=== PATIENT | male | born 1950 | race Caucasian/White ===

== ENCOUNTER 2021-05-23 21:02 | Inpatient (IN) | payer MEDICARE ==
[2021-05-23 21:41] LABS: Hemoglobin 13.7 g/dL (13.5-17.5); Mean Corpuscular Hemoglobin 30.6 pg (27.0-33.0); Mean Corpuscular Volume 92.8 fl (81.2-95.1); Mean Platelet Volume 11.2 fl (7.4-10.4); Platelet Count 325 10x3/uL (150-450); RBC Distribution Width 16.4 % (11.5-14.5); Red Blood Cell (RBC) Count 4.47 10x6/uL (4.32-5.72); White Blood Cell (WBC) Count 9.4 10x3/uL (3.5-10.5)
[2021-05-23 21:42] LABS: MDiff Complete? YES
[2021-05-23 21:51] LABS: ALT (SGPT) 67 U/L (8-55); AST (SGOT) 71 U/L (5-34); Albumin 2.9 g/dL (3.4-4.8); Alkaline Phosphatase 68 U/L (40-110); Anion Gap 15 mmol/L (10-20); BUN (Urea Nitrogen) 29 mg/dL (8.4-25.7); Bilirubin, Total 1.5 mg/dL (0.2-1.2); CRP (Inflammatory) 17.58 mg/dL (= or < 0.5); Calc. Creatinine Clearance 0 mL/min (70-130); Calcium 7.9 mg/dL (7.8-10.44); Carbon Dioxide 21 mmol/L (23-31); Chloride 112 mmol/L (98-107); Globulin 3.6 g/dL (2.4-3.5); Glucose 122 mg/dL (83-110); Lipase 26 U/L (8-78); Magnesium 2.6 mg/dL (1.6-2.6); Potassium 4.6 mmol/L (3.5-5.1); Protein, Total 6.5 g/dL (5.8-8.1); Sodium 143 mmol/L (136-145)
[2021-05-23 22:14] LABS: CKMB 2.9 ng/mL (0-6.6)
[2021-05-23 22:18] LABS: Bilirubin Neg (Negative); Blood, Urine 10 (Negative); Clarity Clear (Clear); Glucose, Urine (Dipstick) Normal (Negative); Ketone, Urine Negative (Negative); Leukocyte 25 (Negative); Nitrite Negative (Negative); Protein, Urine (Dipstick) 30 mg/dl (Neg-Trace)
[2021-05-23 22:23] LABS: SARS-CoV-2 NAA Rapid Test DETECTED (NotDetected)
[2021-05-23 22:27] LABS: Actual Bicarbonate (HCO3a) 21.3 mEq/L (22-28); Base Excess (BEa) -1.5 mEq/L (-2.0 to +3.0); CO2 Tension 30.6 mmHg (35.0-45.0); Calcium, Ionized (arterial) 1.14 mmol/L (1.12-1.30); Carboxyhemoglobin (COHb) 0.7 gm% (0.0-3.0); Hemoglobin (Hb) 13.6 g/dL (14.0-18.0); O2 Tension (PaO2), arterial 48.9 mmHg (> 70.0); Potassium - ABG Lab 4.1 mmol/L (3.70-5.30); Puncture Site RRA; pH, Arterial 7.46 (7.35-7.45)
[2021-05-23 22:37] LABS: Bacteria/HPF 3+ HPF (None Seen); Mucous/LPF 3+ LPF (<2+); RBC/HPF 0-3 HPF (0-3); Squamous Epithelial 0-3 HPF (0-3); WBC/HPF 0-3 HPF (0-3)
[2021-05-23] MEDS ORDERED: Aspirin 325 MG TAB ONE (23:10)
[2021-05-23] MEDS ORDERED: Dexamethasone 10 MG/ML VIAL ONE (23:10)
[2021-05-23 23:49] LABS: Band 3 % (5-11); Lymphocytes 12 % (21-51); Monocytes 2 % (0-10); Neutrophil 82 % (42-75); Reactive Lymphocytes 1 % (0-10)
[2021-05-23 23:53] LABS: Platelet Clumps SLIGHT; RBC Morphology Normal
[2021-05-23] MEDS ORDERED: Acetaminophen 325 MG TAB PO PRN (23:56)
[2021-05-23] MEDS ORDERED: HYDROcodone/Acetaminophen 5/325 mg Tablet PO PRN (23:56)
[2021-05-23] MEDS ORDERED: Calcium Carbonate 500 MG ChewTAB PO PRN (23:56)
[2021-05-23] MEDS ORDERED: Ondansetron PF 4 MG/2 ML Vial IVP PRN (23:56)
[2021-05-24] MEDS ORDERED: Ventolin HFA Inhaler 60 PUFF INHALER INH PRN (00:05)
[2021-05-24] MEDS ORDERED: Enoxaparin Sodium 100 MG/ML SYRINGE SC SCH (00:15)
[2021-05-24] MEDS ORDERED: Lactated Ringer's 500 ML IV SCH (00:15)
[2021-05-24] MEDS ORDERED: Sodium Chloride 0.9% 1,000 ML IV SCH ×2 (00:15→00:24)
[2021-05-24] MEDS ORDERED: Sodium Chloride 0.45% 1,000 ML IV SCH ×2 (00:30→05:27)
[2021-05-24 00:54] LABS: Lactic Acid 1.4 mmol/L (0.5-2.2)
[2021-05-24] MEDS ORDERED: Enoxaparin Sodium 100 MG/ML SYRINGE ONE (02:16)
[2021-05-24] MEDS ORDERED: metroNIDAZOLE 500 MG/100 ML BAG ONE (02:17)
[2021-05-24] MEDS ORDERED: Levofloxacin 500 mg/D5W 100 ml Premix Bag ONE (02:18)
[2021-05-24 05:16] LABS: ALT (SGPT) 56 U/L (8-55); AST (SGOT) 53 U/L (5-34); Albumin 2.4 g/dL (3.4-4.8); Alkaline Phosphatase 56 U/L (40-110); Anion Gap 12 mmol/L (10-20); BUN (Urea Nitrogen) 31 mg/dL (8.4-25.7); Bilirubin, Total 1.1 mg/dL (0.2-1.2); Calc. Creatinine Clearance 0 mL/min (70-130); Calcium 7.8 mg/dL (7.8-10.44); Carbon Dioxide 19 mmol/L (23-31); Chloride 118 mmol/L (98-107); Globulin 3.5 g/dL (2.4-3.5); Glucose 145 mg/dL (83-110); Potassium 4.4 mmol/L (3.5-5.1); Protein, Total 5.9 g/dL (5.8-8.1); Sodium 145 mmol/L (136-145)
[2021-05-24 07:44] LABS: MDiff Complete? YES
[2021-05-24 07:45] LABS: Hemoglobin 11.9 g/dL (13.5-17.5); Mean Corpuscular HGB CONC 32.9 g/dL (32.0-36.0); Mean Corpuscular Hemoglobin 30.4 pg (27.0-33.0); Mean Corpuscular Volume 92.3 fl (81.2-95.1); Mean Platelet Volume 10.5 fl (7.4-10.4); Platelet Count 244 10x3/uL (150-450); RBC Distribution Width 16.8 % (11.5-14.5); Red Blood Cell (RBC) Count 3.92 10x6/uL (4.32-5.72); White Blood Cell (WBC) Count 7.5 10x3/uL (3.5-10.5)
[2021-05-24 07:52] LABS: Band 4 % (5-11); Lymphocytes 5 % (21-51); Monocytes 1 % (0-10); Neutrophil 86 % (42-75); Nucleated RBC 1 % (0); Reactive Lymphocytes 4 % (0-10)
[2021-05-24 07:54] LABS: Platelet Morphology Comment Appears Adequate; RBC Morphology Normal
[2021-05-24 08:44] LABS: CKMB 2.4 ng/mL (0-6.6)
[2021-05-24] MEDS ORDERED: Dexamethasone 4 mg/ml Vial SLOW IVP SCH (09:00)
[2021-05-24] MEDS ORDERED: Enoxaparin Sodium 40 MG/0.4 ML SYRINGE SC SCH (09:00)
[2021-05-24] MEDS: metroNIDAZOLE 500 MG in Premix Bag 1 BAG IVPB SCH ×3 (10:28→21:43)
[2021-05-24] MEDS: Enoxaparin Sodium 100 MG/ML SYRINGE SC SCH ×2 (10:57→20:20)
[2021-05-24] MEDS: Ascorbic Acid 500 mg Chewable Tablet PO SCH (10:58)
[2021-05-24] MEDS: Zinc Gluconate 50 MG TAB PO SCH (10:58)
[2021-05-24] MEDS: Aspirin 81 mg Enteric Coated Tablet PO SCH (10:58)
[2021-05-24] MEDS: Cholecalciferol 1,000 UNITS (25 MCG) TAB PO SCH (10:58)
[2021-05-24 16:10] LABS: Legionella Urinary Ag Negative (Negative); Strep pneumo Urine Ag NEGATIVE (NEGATIVE)
[2021-05-24] MEDS: Rosuvastatin 20 MG TAB PO SCH (20:20)
[2021-05-24] MEDS: BARICITINIB 2 MG TAB PO SCH (20:20)
[2021-05-25 04:13] LABS: Hemoglobin 11.2 g/dL (13.5-17.5); MDiff Complete? YES; Manual Diff?? YES; Mean Corpuscular HGB CONC 32.2 g/dL (32.0-36.0); Mean Corpuscular Hemoglobin 29.9 pg (27.0-33.0); Mean Corpuscular Volume 92.8 fl (81.2-95.1); Mean Platelet Volume 11.4 fl (7.4-10.4); Platelet Count 275 10x3/uL (150-450); RBC Distribution Width 16.7 % (11.5-14.5); Red Blood Cell (RBC) Count 3.75 10x6/uL (4.32-5.72)
[2021-05-25 04:26] LABS: Band 21 % (5-11); Lymphocytes 12 % (21-51); Neutrophil 67 % (42-75); Nucleated RBC 1 % (0); Platelet Morphology Comment Appears Adequate
[2021-05-25 04:27] LABS: Anisocytosis SLIGHT = 6-15 cells (100X) (0-5/hpf); Polychromasia SLIGHT = 2-3 cells (100X) (0-2/hpf)
[2021-05-25] MEDS: metroNIDAZOLE 500 MG in Premix Bag 1 BAG IVPB SCH ×3 (05:51→22:06)
[2021-05-25] MEDS ORDERED: Sodium Chloride 0.9% 250 ML 250 ML IVPB SCH (06:30)
[2021-05-25 07:33] LABS: ALT (SGPT) 44 U/L (8-55); AST (SGOT) 45 U/L (5-34); Albumin 2.2 g/dL (3.4-4.8); Alkaline Phosphatase 58 U/L (40-110); Anion Gap 11 mmol/L (10-20); BUN (Urea Nitrogen) 31 mg/dL (8.4-25.7); Bilirubin, Total 0.8 mg/dL (0.2-1.2); Calc. Creatinine Clearance 124 mL/min (70-130); Calcium 7.5 mg/dL (7.8-10.44); Carbon Dioxide 19 mmol/L (23-31); Chloride 114 mmol/L (98-107); Globulin 3.2 g/dL (2.4-3.5); Glucose 123 mg/dL (83-110); Potassium 3.9 mmol/L (3.5-5.1); Protein, Total 5.4 g/dL (5.8-8.1); Sodium 140 mmol/L (136-145)
[2021-05-25] MEDS: Dexamethasone 4 mg/ml Vial SLOW IVP SCH ×2 (10:00→20:25)
[2021-05-25] MEDS: Cholecalciferol 1,000 UNITS (25 MCG) TAB PO SCH (10:01)
[2021-05-25] MEDS: Enoxaparin Sodium 100 MG/ML SYRINGE SC SCH ×2 (10:01→20:24)
[2021-05-25] MEDS: Aspirin 81 mg Enteric Coated Tablet PO SCH (10:01)
[2021-05-25] MEDS: Zinc Gluconate 50 MG TAB PO SCH (10:01)
[2021-05-25] MEDS: Ascorbic Acid 500 mg Chewable Tablet PO SCH (10:01)
[2021-05-25] MEDS: Mometasone 100 MCG/PUFF (1 INHALER) INH SCH (18:01)
[2021-05-25] MEDS ORDERED: Mometasone Furoate 120 PUFF 220 MCG INH SCH (18:30)
[2021-05-25] MEDS: BARICITINIB 2 MG TAB PO SCH (20:24)
[2021-05-25] MEDS: Rosuvastatin 20 MG TAB PO SCH (20:24)
[2021-05-26 04:44] LABS: ALT (SGPT) 45 U/L (8-55); AST (SGOT) 46 U/L (5-34); Albumin 2.1 g/dL (3.4-4.8); Alkaline Phosphatase 67 U/L (40-110); Anion Gap 10 mmol/L (10-20); BUN (Urea Nitrogen) 31 mg/dL (8.4-25.7); Bilirubin, Total 0.8 mg/dL (0.2-1.2); Calc. Creatinine Clearance 121 mL/min (70-130); Calcium 7.5 mg/dL (7.8-10.44); Carbon Dioxide 18 mmol/L (23-31); Chloride 115 mmol/L (98-107); Globulin 3.3 g/dL (2.4-3.5); Glucose 122 mg/dL (83-110); Potassium 3.9 mmol/L (3.5-5.1); Protein, Total 5.4 g/dL (5.8-8.1); Sodium 139 mmol/L (136-145)
[2021-05-26 05:10] LABS: #Monocytes 0.2 10x3/uL (0.0-1.1); #Neutrophils 6.1 10x3/uL (1.5-8.4); %Basophils 0.4 % (0.0-2.0); %Lymphocytes 13.4 % (18.0-47.0); %Monocytes 2.4 % (0.0-10.0); %Neutrophils 81.8 % (40.0-75.0); Hemoglobin 11.4 g/dL (13.5-17.5); Mean Corpuscular HGB CONC 33.5 g/dL (32.0-36.0); Mean Corpuscular Hemoglobin 30.5 pg (27.0-33.0); Mean Corpuscular Volume 90.9 fl (81.2-95.1); Mean Platelet Volume 11.3 fl (7.4-10.4); Platelet Count 308 10x3/uL (150-450); RBC Distribution Width 16.6 % (11.5-14.5); Red Blood Cell (RBC) Count 3.74 10x6/uL (4.32-5.72); White Blood Cell (WBC) Count 7.5 10x3/uL (3.5-10.5)
[2021-05-26] MEDS: metroNIDAZOLE 500 MG in Premix Bag 1 BAG IVPB SCH ×2 (06:05→13:18)
[2021-05-26] MEDS: Dexamethasone 4 mg/ml Vial SLOW IVP SCH ×2 (08:32→21:35)
[2021-05-26] MEDS: Ascorbic Acid 500 mg Chewable Tablet PO SCH (08:33)
[2021-05-26] MEDS: Cholecalciferol 1,000 UNITS (25 MCG) TAB PO SCH (08:33)
[2021-05-26] MEDS: Enoxaparin Sodium 100 MG/ML SYRINGE SC SCH ×2 (08:33→21:35)
[2021-05-26] MEDS: Zinc Gluconate 50 MG TAB PO SCH (08:33)
[2021-05-26] MEDS: Aspirin 81 mg Enteric Coated Tablet PO SCH (08:33)
[2021-05-26] MEDS: Mometasone 100 MCG/PUFF (1 INHALER) INH SCH ×3 (09:00→19:08)
[2021-05-26] MEDS: Loperamide HCl 1 MG/7.5 ML UDCUP PO PRN (09:01)
[2021-05-26] MEDS: BARICITINIB 2 MG TAB PO SCH (21:34)
[2021-05-26] MEDS: Rosuvastatin 20 MG TAB PO SCH (21:35)
[2021-05-26] MEDS ORDERED: Enoxaparin Sodium 100 MG/ML SYRINGE ONE (21:37)
[2021-05-26] MEDS: Nystatin Powder 15 GM BOT TOP SCH (21:39)
[2021-05-27 04:43] LABS: Anion Gap 11 mmol/L (10-20); BUN (Urea Nitrogen) 32 mg/dL (8.4-25.7); Calc. Creatinine Clearance 117 mL/min (70-130); Calcium 7.7 mg/dL (7.8-10.44); Carbon Dioxide 17 mmol/L (23-31); Chloride 115 mmol/L (98-107); Glucose 144 mg/dL (83-110); Potassium 4.4 mmol/L (3.5-5.1); Sodium 139 mmol/L (136-145)
[2021-05-27 05:03] LABS: #Monocytes 0.2 10x3/uL (0.0-1.1); #Neutrophils 8.1 10x3/uL (1.5-8.4); %Basophils 0.2 % (0.0-2.0); %Lymphocytes 9.3 % (18.0-47.0); %Monocytes 2.4 % (0.0-10.0); Hemoglobin 12.3 g/dL (13.5-17.5); Mean Corpuscular HGB CONC 33.2 g/dL (32.0-36.0); Mean Corpuscular Hemoglobin 30.3 pg (27.0-33.0); Mean Corpuscular Volume 91.4 fl (81.2-95.1); Mean Platelet Volume 11.4 fl (7.4-10.4); Platelet Count 331 10x3/uL (150-450); RBC Distribution Width 16.7 % (11.5-14.5); Red Blood Cell (RBC) Count 4.06 10x6/uL (4.32-5.72); White Blood Cell (WBC) Count 9.3 10x3/uL (3.5-10.5)
[2021-05-27] MEDS: Enoxaparin Sodium 100 MG/ML SYRINGE SC SCH ×2 (08:35→20:52)
[2021-05-27] MEDS: Saccharomyces boulardii 250 MG CAP PO SCH (08:35)
[2021-05-27] MEDS: Dexamethasone 4 mg/ml Vial SLOW IVP SCH ×2 (08:35→20:53)
[2021-05-27] MEDS: Ascorbic Acid 500 mg Chewable Tablet PO SCH (08:36)
[2021-05-27] MEDS: Zinc Gluconate 50 MG TAB PO SCH (08:36)
[2021-05-27] MEDS: Aspirin 81 mg Enteric Coated Tablet PO SCH (08:36)
[2021-05-27] MEDS: Cholecalciferol 1,000 UNITS (25 MCG) TAB PO SCH (08:36)
[2021-05-27] MEDS: Nystatin Powder 15 GM BOT TOP SCH ×2 (08:48→20:53)
[2021-05-27] MEDS: Mometasone 100 MCG/PUFF (1 INHALER) INH SCH ×2 (08:50→19:40)
[2021-05-27] MEDS: Rosuvastatin 20 MG TAB PO SCH (20:52)
[2021-05-27] MEDS: Sodium Bicarbonate Tab 325 MG TAB PO SCH (20:53)
[2021-05-27] MEDS: BARICITINIB 2 MG TAB PO SCH (20:53)
[2021-05-28] MEDS: Loperamide HCl 1 MG/7.5 ML UDCUP PO PRN ×4 (05:43→21:57)
[2021-05-28 07:20] LABS: Anion Gap 14 mmol/L (10-20); BUN (Urea Nitrogen) 33 mg/dL (8.4-25.7); Calc. Creatinine Clearance 119 mL/min (70-130); Calcium 7.8 mg/dL (7.8-10.44); Carbon Dioxide 17 mmol/L (23-31); Chloride 115 mmol/L (98-107); Glucose 104 mg/dL (83-110); Potassium 4.8 mmol/L (3.5-5.1); Sodium 141 mmol/L (136-145)
[2021-05-28] MEDS ORDERED: Enoxaparin Sodium 100 MG/ML SYRINGE ONE (07:29)
[2021-05-28] MEDS: Dexamethasone 4 mg/ml Vial SLOW IVP SCH ×2 (08:51→21:57)
[2021-05-28] MEDS: Ascorbic Acid 500 mg Chewable Tablet PO SCH (08:53)
[2021-05-28] MEDS: Aspirin 81 mg Enteric Coated Tablet PO SCH (08:53)
[2021-05-28] MEDS: Cholecalciferol 1,000 UNITS (25 MCG) TAB PO SCH (08:54)
[2021-05-28] MEDS: Nystatin Powder 15 GM BOT TOP SCH ×2 (08:55→21:55)
[2021-05-28] MEDS: Enoxaparin Sodium 100 MG/ML SYRINGE SC SCH ×2 (08:55→21:54)
[2021-05-28] MEDS: Sodium Bicarbonate Tab 325 MG TAB PO SCH ×2 (08:56→21:54)
[2021-05-28] MEDS: Saccharomyces boulardii 250 MG CAP PO SCH (08:56)
[2021-05-28] MEDS: Zinc Gluconate 50 MG TAB PO SCH (08:56)
[2021-05-28] MEDS: Mometasone 100 MCG/PUFF (1 INHALER) INH SCH ×2 (10:02→18:35)
[2021-05-28] MEDS: Guaifenesin DM 100-10/5 ML UDCUP PO PRN (10:04)
[2021-05-28] MEDS: Rosuvastatin 20 MG TAB PO SCH (21:55)
[2021-05-28] MEDS: BARICITINIB 2 MG TAB PO SCH (21:57)
[2021-05-29] MEDS: Loperamide HCl 1 MG/7.5 ML UDCUP PO PRN ×5 (04:00→20:10)
[2021-05-29 07:51] LABS: #Monocytes 0.3 10x3/uL (0.0-1.1); #Neutrophils 11.6 10x3/uL (1.5-8.4); %Basophils 0.2 % (0.0-2.0); %Lymphocytes 5.3 % (18.0-47.0); %Monocytes 2.3 % (0.0-10.0); %Neutrophils 90.1 % (40.0-75.0); Hemoglobin 12.6 g/dL (13.5-17.5); Mean Corpuscular Hemoglobin 30.7 pg (27.0-33.0); Mean Corpuscular Volume 90.3 fl (81.2-95.1); Mean Platelet Volume 11.6 fl (7.4-10.4); Platelet Count 345 10x3/uL (150-450); RBC Distribution Width 16.6 % (11.5-14.5); Red Blood Cell (RBC) Count 4.11 10x6/uL (4.32-5.72); White Blood Cell (WBC) Count 12.9 10x3/uL (3.5-10.5)
[2021-05-29 08:04] LABS: ALT (SGPT) 96 U/L (8-55); AST (SGOT) 64 U/L (5-34); Albumin 2.4 g/dL (3.4-4.8); Alkaline Phosphatase 83 U/L (40-110); Anion Gap 13 mmol/L (10-20); BUN (Urea Nitrogen) 29 mg/dL (8.4-25.7); Bilirubin, Total 0.7 mg/dL (0.2-1.2); Calc. Creatinine Clearance 122 mL/min (70-130); Calcium 7.8 mg/dL (7.8-10.44); Carbon Dioxide 17 mmol/L (23-31); Chloride 114 mmol/L (98-107); Globulin 3.3 g/dL (2.4-3.5); Glucose 112 mg/dL (83-110); Potassium 4.8 mmol/L (3.5-5.1); Protein, Total 5.7 g/dL (5.8-8.1); Sodium 139 mmol/L (136-145)
[2021-05-29] MEDS: Dexamethasone 4 mg/ml Vial SLOW IVP SCH (09:03)
[2021-05-29] MEDS: Aspirin 81 mg Enteric Coated Tablet PO SCH (09:03)
[2021-05-29] MEDS: Ascorbic Acid 500 mg Chewable Tablet PO SCH (09:04)
[2021-05-29] MEDS: Enoxaparin Sodium 100 MG/ML SYRINGE SC SCH ×2 (09:05→20:18)
[2021-05-29] MEDS: Zinc Gluconate 50 MG TAB PO SCH (09:05)
[2021-05-29] MEDS: Cholecalciferol 1,000 UNITS (25 MCG) TAB PO SCH (09:05)
[2021-05-29] MEDS: Nystatin Powder 15 GM BOT TOP SCH ×2 (09:06→20:19)
[2021-05-29] MEDS: Saccharomyces boulardii 250 MG CAP PO SCH (09:07)
[2021-05-29] MEDS: Sodium Bicarbonate Tab 325 MG TAB PO SCH ×2 (09:08→20:18)
[2021-05-29] MEDS: Mometasone 100 MCG/PUFF (1 INHALER) INH SCH ×2 (09:38→19:25)
[2021-05-29] MEDS: Guaifenesin DM 100-10/5 ML UDCUP PO PRN (20:10)
[2021-05-29] MEDS: BARICITINIB 2 MG TAB PO SCH (20:18)
[2021-05-29] MEDS: Rosuvastatin 20 MG TAB PO SCH (20:19)
[2021-05-29 21:34] LABS: Actual Bicarbonate (HCO3a) 19.4 mEq/L (22-28); Base Excess (BEa) -2.2 mEq/L (-2.0 to +3.0); CO2 Tension 25.5 mmHg (35.0-45.0); Calcium, Ionized (arterial) 1.18 mmol/L (1.12-1.30); Carboxyhemoglobin (COHb) 0.2 gm% (0.0-3.0); Hemoglobin (Hb) 13.4 g/dL (14.0-18.0); O2 Tension (PaO2), arterial 43.6 mmHg (> 70.0); Potassium - ABG Lab 4.4 mmol/L (3.70-5.30); Puncture Site LRA
[2021-05-29 21:38] LABS: ALV-art Gradient 387.975 mmHg (0-20)
[2021-05-29 22:20] LABS: Actual Bicarbonate (HCO3a) 20.1 mEq/L (22-28); Base Excess (BEa) -1.6 mEq/L (-2.0 to +3.0); CO2 Tension 26.3 mmHg (35.0-45.0); Calcium, Ionized (arterial) 1.17 mmol/L (1.12-1.30); Carboxyhemoglobin (COHb) 0.2 gm% (0.0-3.0); O2 Tension (PaO2), arterial 59.2 mmHg (> 70.0); Potassium - ABG Lab 4.5 mmol/L (3.70-5.30); Puncture Site LRA
[2021-05-29 22:25] LABS: ALV-art Gradient 585.275 mmHg (0-20)
[2021-05-29] MEDS ORDERED: Furosemide 20 MG/2 ML VIAL SLOW IVP SCH (22:45)
[2021-05-30 04:02] LABS: #Basophils 0.1 10x3/uL (0.0-0.2); #Monocytes 0.6 10x3/uL (0.0-1.1); #Neutrophils 13.4 10x3/uL (1.5-8.4); %Basophils 0.4 % (0.0-2.0); %Lymphocytes 6.7 % (18.0-47.0); %Monocytes 3.8 % (0.0-10.0); %Neutrophils 86.7 % (40.0-75.0); Hemoglobin 12.7 g/dL (13.5-17.5); Mean Corpuscular HGB CONC 34.8 g/dL (32.0-36.0); Mean Corpuscular Hemoglobin 31.1 pg (27.0-33.0); Mean Corpuscular Volume 89.2 fl (81.2-95.1); Mean Platelet Volume 11.2 fl (7.4-10.4); Platelet Count 345 10x3/uL (150-450); RBC Distribution Width 16.8 % (11.5-14.5); Red Blood Cell (RBC) Count 4.09 10x6/uL (4.32-5.72); White Blood Cell (WBC) Count 15.4 10x3/uL (3.5-10.5)
[2021-05-30 04:08] LABS: ALT (SGPT) 88 U/L (8-55); AST (SGOT) 45 U/L (5-34); Albumin 2.4 g/dL (3.4-4.8); Alkaline Phosphatase 76 U/L (40-110); Anion Gap 12 mmol/L (10-20); BUN (Urea Nitrogen) 33 mg/dL (8.4-25.7); Bilirubin, Total 0.7 mg/dL (0.2-1.2); Calc. Creatinine Clearance 116 mL/min (70-130); Carbon Dioxide 21 mmol/L (23-31); Chloride 108 mmol/L (98-107); Globulin 3.5 g/dL (2.4-3.5); Glucose 101 mg/dL (83-110); Potassium 4.6 mmol/L (3.5-5.1); Protein, Total 5.9 g/dL (5.8-8.1); Sodium 136 mmol/L (136-145)
[2021-05-30] MEDS: Guaifenesin DM 100-10/5 ML UDCUP PO PRN (04:16)
[2021-05-30] MEDS: Mometasone 100 MCG/PUFF (1 INHALER) INH SCH ×2 (08:02→18:20)
[2021-05-30] MEDS: Enoxaparin Sodium 100 MG/ML SYRINGE SC SCH ×2 (08:13→21:42)
[2021-05-30] MEDS: Ascorbic Acid 500 mg Chewable Tablet PO SCH (08:14)
[2021-05-30] MEDS: Sodium Bicarbonate Tab 325 MG TAB PO SCH ×2 (08:14→21:42)
[2021-05-30] MEDS: Dexamethasone 20 MG/5 ML VIAL SLOW IVP SCH (08:14)
[2021-05-30] MEDS: Zinc Gluconate 50 MG TAB PO SCH (08:15)
[2021-05-30] MEDS: Saccharomyces boulardii 250 MG CAP PO SCH (08:15)
[2021-05-30] MEDS: Nystatin Powder 15 GM BOT TOP SCH ×2 (08:15→21:43)
[2021-05-30] MEDS: Aspirin 81 mg Enteric Coated Tablet PO SCH (08:15)
[2021-05-30] MEDS: Cholecalciferol 1,000 UNITS (25 MCG) TAB PO SCH (08:15)
[2021-05-30] MEDS ORDERED: Dexamethasone 10 MG in Sodium Chloride 0.9% 50 ML IVPB SCH (09:00)
[2021-05-30] MEDS: Rosuvastatin 20 MG TAB PO SCH (21:42)
[2021-05-30] MEDS: BARICITINIB 2 MG TAB PO SCH (21:42)
[2021-05-31 04:06] LABS: #Basophils 0.1 10x3/uL (0.0-0.2); #Monocytes 0.4 10x3/uL (0.0-1.1); #Neutrophils 12.8 10x3/uL (1.5-8.4); %Basophils 0.4 % (0.0-2.0); %Lymphocytes 7.4 % (18.0-47.0); %Monocytes 2.9 % (0.0-10.0); %Neutrophils 87.1 % (40.0-75.0); Hemoglobin 12.8 g/dL (13.5-17.5); Mean Corpuscular HGB CONC 34.8 g/dL (32.0-36.0); Mean Corpuscular Hemoglobin 31.2 pg (27.0-33.0); Mean Corpuscular Volume 89.8 fl (81.2-95.1); Mean Platelet Volume 11.7 fl (7.4-10.4); Platelet Count 340 10x3/uL (150-450); RBC Distribution Width 17.1 % (11.5-14.5); White Blood Cell (WBC) Count 14.7 10x3/uL (3.5-10.5)
[2021-05-31 04:10] LABS: ALT (SGPT) 66 U/L (8-55); AST (SGOT) 34 U/L (5-34); Albumin 2.4 g/dL (3.4-4.8); Alkaline Phosphatase 76 U/L (40-110); Anion Gap 13 mmol/L (10-20); BUN (Urea Nitrogen) 26 mg/dL (8.4-25.7); Bilirubin, Total 0.9 mg/dL (0.2-1.2); Calc. Creatinine Clearance 115 mL/min (70-130); Calcium 7.9 mg/dL (7.8-10.44); Carbon Dioxide 19 mmol/L (23-31); Chloride 107 mmol/L (98-107); Globulin 3.4 g/dL (2.4-3.5); Glucose 116 mg/dL (83-110); Potassium 4.6 mmol/L (3.5-5.1); Protein, Total 5.8 g/dL (5.8-8.1); Sodium 134 mmol/L (136-145)
[2021-05-31 05:36] LABS: ALT (SGPT) 67 U/L (8-55); AST (SGOT) 34 U/L (5-34); Albumin 2.5 g/dL (3.4-4.8); Alkaline Phosphatase 75 U/L (40-110); Bilirubin, Direct 0.4 mg/dL (0.1-0.3); Bilirubin, Total 0.9 mg/dL (0.2-1.2); Protein, Total 5.9 g/dL (5.8-8.1)
[2021-05-31] MEDS ORDERED: Melatonin 3 MG TAB PO PRN (08:01)
[2021-05-31] MEDS: Mometasone 100 MCG/PUFF (1 INHALER) INH SCH ×2 (08:27→20:11)
[2021-05-31] MEDS: Zinc Gluconate 50 MG TAB PO SCH (09:29)
[2021-05-31] MEDS: Saccharomyces boulardii 250 MG CAP PO SCH (09:29)
[2021-05-31] MEDS: Cholecalciferol 1,000 UNITS (25 MCG) TAB PO SCH (09:29)
[2021-05-31] MEDS: Ascorbic Acid 500 mg Chewable Tablet PO SCH (09:29)
[2021-05-31] MEDS: Dexamethasone 20 MG/5 ML VIAL SLOW IVP SCH (09:30)
[2021-05-31] MEDS: Aspirin 81 mg Enteric Coated Tablet PO SCH (09:30)
[2021-05-31] MEDS: Enoxaparin Sodium 100 MG/ML SYRINGE SC SCH ×2 (09:30→22:16)
[2021-05-31] MEDS: Nystatin Powder 15 GM BOT TOP SCH ×2 (09:30→22:16)
[2021-05-31] MEDS: ALPRAZolam 0.25 MG TAB PO PRN (15:31)
[2021-05-31] MEDS: Guaifenesin DM 100-10/5 ML UDCUP PO PRN ×2 (16:48→22:16)
[2021-05-31 20:23] LABS: Actual Bicarbonate (HCO3a) 22.7 mEq/L (22-28); Base Excess (BEa) -0.1 mEq/L (-2.0 to +3.0); CO2 Tension 31.2 mmHg (35.0-45.0); Calcium, Ionized (arterial) 1.19 mmol/L (1.12-1.30); Carboxyhemoglobin (COHb) 0.2 gm% (0.0-3.0); Hemoglobin (Hb) 12.9 g/dL (14.0-18.0); O2 Tension (PaO2), arterial 79.6 mmHg (> 70.0); Potassium - ABG Lab 4.5 mmol/L (3.70-5.30); Puncture Site RRA; pH, Arterial 7.48 (7.35-7.45)
[2021-05-31] MEDS: Sodium Bicarbonate Tab 325 MG TAB PO SCH (22:15)
[2021-05-31] MEDS: BARICITINIB 2 MG TAB PO SCH (22:15)
[2021-05-31] MEDS: Rosuvastatin 20 MG TAB PO SCH (22:16)
[2021-06-01 04:44] LABS: #Basophils 0.1 10x3/uL (0.0-0.2); #Monocytes 0.5 10x3/uL (0.0-1.1); #Neutrophils 10.2 10x3/uL (1.5-8.4); %Basophils 0.5 % (0.0-2.0); %Lymphocytes 7.9 % (18.0-47.0); %Monocytes 3.8 % (0.0-10.0); %Neutrophils 84.3 % (40.0-75.0); Hemoglobin 12.5 g/dL (13.5-17.5); Mean Corpuscular HGB CONC 33.2 g/dL (32.0-36.0); Mean Corpuscular Hemoglobin 30.5 pg (27.0-33.0); Mean Platelet Volume 11.5 fl (7.4-10.4); Platelet Count 332 10x3/uL (150-450); White Blood Cell (WBC) Count 12.1 10x3/uL (3.5-10.5)
[2021-06-01 05:03] LABS: ALT (SGPT) 59 U/L (8-55); AST (SGOT) 31 U/L (5-34); Albumin 2.5 g/dL (3.4-4.8); Alkaline Phosphatase 71 U/L (40-110); Anion Gap 14 mmol/L (10-20); BUN (Urea Nitrogen) 23 mg/dL (8.4-25.7); Bilirubin, Total 0.8 mg/dL (0.2-1.2); Calc. Creatinine Clearance 111 mL/min (70-130); Calcium 8.1 mg/dL (7.8-10.44); Carbon Dioxide 22 mmol/L (23-31); Chloride 105 mmol/L (98-107); Globulin 3.5 g/dL (2.4-3.5); Glucose 99 mg/dL (83-110); Potassium 4.5 mmol/L (3.5-5.1); Sodium 136 mmol/L (136-145)
[2021-06-01] MEDS: Mometasone 100 MCG/PUFF (1 INHALER) INH SCH ×2 (07:27→18:19)
[2021-06-01] MEDS: Enoxaparin Sodium 100 MG/ML SYRINGE SC SCH ×2 (08:39→20:17)
[2021-06-01] MEDS: Cholecalciferol 1,000 UNITS (25 MCG) TAB PO SCH (08:40)
[2021-06-01] MEDS: Dexamethasone 20 MG/5 ML VIAL SLOW IVP SCH (08:40)
[2021-06-01] MEDS: Saccharomyces boulardii 250 MG CAP PO SCH (08:40)
[2021-06-01] MEDS: Ascorbic Acid 500 mg Chewable Tablet PO SCH (08:41)
[2021-06-01] MEDS: Aspirin 81 mg Enteric Coated Tablet PO SCH (08:41)
[2021-06-01] MEDS: Sodium Bicarbonate Tab 325 MG TAB PO SCH (08:41)
[2021-06-01] MEDS: Zinc Gluconate 50 MG TAB PO SCH (08:41)
[2021-06-01] MEDS: Nystatin Powder 15 GM BOT TOP SCH ×2 (11:32→20:17)
[2021-06-01] MEDS: ALPRAZolam 0.25 MG TAB PO PRN (13:51)
[2021-06-01] MEDS: Rosuvastatin 20 MG TAB PO SCH (20:18)
[2021-06-01] MEDS: BARICITINIB 2 MG TAB PO SCH (20:18)
[2021-06-02] MEDS: Mometasone 100 MCG/PUFF (1 INHALER) INH SCH ×2 (07:35→19:15)
[2021-06-02] MEDS: Aspirin 81 mg Enteric Coated Tablet PO SCH (08:05)
[2021-06-02] MEDS: Zinc Gluconate 50 MG TAB PO SCH (08:05)
[2021-06-02] MEDS: Saccharomyces boulardii 250 MG CAP PO SCH (08:06)
[2021-06-02] MEDS: Cholecalciferol 1,000 UNITS (25 MCG) TAB PO SCH (08:06)
[2021-06-02] MEDS: Ascorbic Acid 500 mg Chewable Tablet PO SCH (08:06)
[2021-06-02] MEDS: Dexamethasone 20 MG/5 ML VIAL SLOW IVP SCH ×3 (08:06→20:11)
[2021-06-02] MEDS: Enoxaparin Sodium 100 MG/ML SYRINGE SC SCH ×2 (08:44→20:07)
[2021-06-02] MEDS: Nystatin Powder 15 GM BOT TOP SCH ×2 (08:44→20:07)
[2021-06-02] MEDS: BARICITINIB 2 MG TAB PO SCH (19:52)
[2021-06-02] MEDS: Rosuvastatin 20 MG TAB PO SCH (20:07)
[2021-06-03 04:37] LABS: #Monocytes 0.2 10x3/uL (0.0-1.1); #Neutrophils 9.2 10x3/uL (1.5-8.4); %Basophils 0.3 % (0.0-2.0); %Lymphocytes 5.1 % (18.0-47.0); %Monocytes 1.7 % (0.0-10.0); %Neutrophils 90.3 % (40.0-75.0); Hemoglobin 11.3 g/dL (13.5-17.5); Mean Corpuscular HGB CONC 33.1 g/dL (32.0-36.0); Mean Corpuscular Hemoglobin 30.5 pg (27.0-33.0); Mean Corpuscular Volume 91.9 fl (81.2-95.1); Mean Platelet Volume 11.3 fl (7.4-10.4); Platelet Count 332 10x3/uL (150-450); RBC Distribution Width 17.2 % (11.5-14.5); Red Blood Cell (RBC) Count 3.71 10x6/uL (4.32-5.72); White Blood Cell (WBC) Count 10.1 10x3/uL (3.5-10.5)
[2021-06-03 04:41] LABS: ALT (SGPT) 47 U/L (8-55); AST (SGOT) 23 U/L (5-34); Albumin 2.4 g/dL (3.4-4.8); Alkaline Phosphatase 65 U/L (40-110); Anion Gap 11 mmol/L (10-20); BUN (Urea Nitrogen) 27 mg/dL (8.4-25.7); Bilirubin, Direct 0.3 mg/dL (0.1-0.3); Bilirubin, Total 0.7 mg/dL (0.2-1.2); Calc. Creatinine Clearance 118 mL/min (70-130); Calcium 8.1 mg/dL (7.8-10.44); Carbon Dioxide 25 mmol/L (23-31); Chloride 104 mmol/L (98-107); Globulin 3.3 g/dL (2.4-3.5); Glucose 129 mg/dL (83-110); Protein, Total 5.7 g/dL (5.8-8.1); Sodium 135 mmol/L (136-145)
[2021-06-03] MEDS: Mometasone 100 MCG/PUFF (1 INHALER) INH SCH ×2 (07:55→20:32)
[2021-06-03] MEDS ORDERED: methylPREDNISolone Sod Succ/PF 40 MG in Sodium Chloride 0.9% 250 ML 250 ML IVPB SCH (08:15)
[2021-06-03 08:20] LABS: Actual Bicarbonate (HCO3a) 22.4 mEq/L (22-28); Base Excess (BEa) 0.3 mEq/L (-2.0 to +3.0); CO2 Tension 28.9 mmHg (35.0-45.0); Calcium, Ionized (arterial) 1.18 mmol/L (1.12-1.30); Carboxyhemoglobin (COHb) 0.1 gm% (0.0-3.0); Hemoglobin (Hb) 12.4 g/dL (14.0-18.0); O2 Tension (PaO2), arterial 42.3 mmHg (> 70.0); Potassium - ABG Lab 4.4 mmol/L (3.70-5.30); Puncture Site RBA; pH, Arterial 7.51 (7.35-7.45)
[2021-06-03 08:24] LABS: ALV-art Gradient 563.275 mmHg (0-20)
[2021-06-03] MEDS: methylPREDNISolone Sod Succ 40 MG VIAL IVP SCH ×3 (08:48→21:41)
[2021-06-03] MEDS: Zinc Gluconate 50 MG TAB PO SCH (08:48)
[2021-06-03] MEDS: Enoxaparin Sodium 100 MG/ML SYRINGE SC SCH ×3 (08:48→21:53)
[2021-06-03] MEDS: Aspirin 81 mg Enteric Coated Tablet PO SCH (08:48)
[2021-06-03] MEDS: Saccharomyces boulardii 250 MG CAP PO SCH (08:48)
[2021-06-03] MEDS: Cholecalciferol 1,000 UNITS (25 MCG) TAB PO SCH (08:48)
[2021-06-03] MEDS: Nystatin Powder 15 GM BOT TOP SCH ×2 (08:49→21:43)
[2021-06-03 10:14] LABS: ALV-art Gradient 637.325 mmHg (0-20); Actual Bicarbonate (HCO3a) 21.7 mEq/L (22-28); Base Excess (BEa) -0.3 mEq/L (-2.0 to +3.0); CO2 Tension 28.3 mmHg (35.0-45.0); Calcium, Ionized (arterial) 1.17 mmol/L (1.12-1.30); Carboxyhemoglobin (COHb) 0.1 gm% (0.0-3.0); Hemoglobin (Hb) 12.7 g/dL (14.0-18.0); O2 Tension (PaO2), arterial 40.3 mmHg (> 70.0); Potassium - ABG Lab 4.2 mmol/L (3.70-5.30); Puncture Site RRA
[2021-06-03] MEDS ORDERED: Furosemide 40 MG/4 ML VIAL SLOW IVP SCH (12:30)
[2021-06-03] MEDS ORDERED: Rocuronium Bromide 10 MG/ML (10ML VIAL) ONE (14:55)
[2021-06-03] MEDS ORDERED: Dexmedetomidine In 0.9 % NaCl 100 ML ONE (15:03)
[2021-06-03] MEDS ORDERED: Propofol 1,000 MG/100 ML VIAL IV ONE (15:22)
[2021-06-03 16:19] LABS: Actual Bicarbonate (HCO3a) 25.1 mEq/L (22-28); CO2 Tension 47.2 mmHg (35.0-45.0); Calcium, Ionized (arterial) 1.15 mmol/L (1.12-1.30); Carboxyhemoglobin (COHb) 0.3 gm% (0.0-3.0); Hemoglobin (Hb) 12.6 g/dL (14.0-18.0); O2 Tension (PaO2), arterial 101.6 mmHg (> 70.0); Potassium - ABG Lab 4.2 mmol/L (3.70-5.30); Puncture Site LRA; pH, Arterial 7.34 (7.35-7.45)
[2021-06-03] MEDS ORDERED: Morphine 2 MG/ML VIAL SLOW IVP PRN (18:45)
[2021-06-03] MEDS ORDERED: Lorazepam 2 MG/ML VIAL SLOW IVP PRN (18:45)
[2021-06-03] MEDS ORDERED: Fentanyl BOLUS 250 ML IVPB PRN (18:45)
[2021-06-03] MEDS ORDERED: DISCONTINUE PREVIOUS NARCOTIC PAIN MEDICATIONS AND BENZODIAZEPINES FS SCH (18:45)
[2021-06-03] MEDS ORDERED: Propofol BOLUS 1,000 MG/100 ML VIAL IV PRN (18:45)
[2021-06-03] MEDS ORDERED: Midazolam HCl 2 mg/2 ml Vial SLOW IVP PRN (19:40)
[2021-06-03] MEDS ORDERED: Fentanyl 100 MCG/2 ML VIAL SLOW IVP PRN (19:40)
[2021-06-03] MEDS: Norepinephrine 8 MG/0.9% NS 250 ML IVPB SCH (20:08)
[2021-06-03] MEDS: Rosuvastatin 20 MG TAB PO SCH (21:41)
[2021-06-03] MEDS: BARICITINIB 2 MG TAB PO SCH (21:41)
[2021-06-04] MEDS: Propofol 1,000 MG/100 ML VIAL IV PRN ×3 (01:56→14:56)
[2021-06-04] MEDS: methylPREDNISolone Sod Succ 40 MG VIAL IVP SCH ×4 (03:16→20:49)
[2021-06-04 04:10] LABS: #Monocytes 0.4 10x3/uL (0.0-1.1); #Neutrophils 15.3 10x3/uL (1.5-8.4); %Basophils 0.1 % (0.0-2.0); %Monocytes 2.6 % (0.0-10.0); %Neutrophils 91.1 % (40.0-75.0); Hemoglobin 11.1 g/dL (13.5-17.5); Mean Corpuscular HGB CONC 33.6 g/dL (32.0-36.0); Mean Corpuscular Hemoglobin 30.9 pg (27.0-33.0); Mean Corpuscular Volume 91.9 fl (81.2-95.1); Mean Platelet Volume 10.9 fl (7.4-10.4); Platelet Count 402 10x3/uL (150-450); RBC Distribution Width 17.2 % (11.5-14.5); Red Blood Cell (RBC) Count 3.59 10x6/uL (4.32-5.72); White Blood Cell (WBC) Count 16.8 10x3/uL (3.5-10.5)
[2021-06-04 04:52] LABS: ALT (SGPT) 52 U/L (8-55); AST (SGOT) 29 U/L (5-34); Albumin 2.6 g/dL (3.4-4.8); Alkaline Phosphatase 66 U/L (40-110); Anion Gap 12 mmol/L (10-20); BUN (Urea Nitrogen) 38 mg/dL (8.4-25.7); Bilirubin, Total 0.8 mg/dL (0.2-1.2); Calc. Creatinine Clearance 102 mL/min (70-130); Calcium 7.9 mg/dL (7.8-10.44); Carbon Dioxide 25 mmol/L (23-31); Chloride 103 mmol/L (98-107); Globulin 3.3 g/dL (2.4-3.5); Glucose 140 mg/dL (83-110); Potassium 4.7 mmol/L (3.5-5.1); Protein, Total 5.9 g/dL (5.8-8.1); Sodium 135 mmol/L (136-145)
[2021-06-04] MEDS: Mometasone 100 MCG/PUFF (1 INHALER) INH SCH ×2 (07:11→19:30)
[2021-06-04 08:13] LABS: Base Excess (BEa) -2.1 mEq/L (-2.0 to +3.0); CO2 Tension 35.2 mmHg (35.0-45.0); Calcium, Ionized (arterial) 1.15 mmol/L (1.12-1.30); Carboxyhemoglobin (COHb) 0.3 gm% (0.0-3.0); Hemoglobin (Hb) 11.8 g/dL (14.0-18.0); O2 Tension (PaO2), arterial 60.5 mmHg (> 70.0); Potassium - ABG Lab 4.7 mmol/L (3.70-5.30); Puncture Site LBA; pH, Arterial 7.41 (7.35-7.45)
[2021-06-04] MEDS: Furosemide 40 MG/4 ML VIAL SLOW IVP SCH (09:28)
[2021-06-04] MEDS: Saccharomyces boulardii 250 MG CAP PO SCH (09:28)
[2021-06-04] MEDS: Cholecalciferol 1,000 UNITS (25 MCG) TAB PO SCH (09:28)
[2021-06-04] MEDS: Ascorbic Acid 500 mg Chewable Tablet PO SCH (09:28)
[2021-06-04] MEDS: fentaNYL Citrate-0.9 % NaCl/PF 100 ML IVPB SCH (09:28)
[2021-06-04] MEDS: Aspirin 81 mg Enteric Coated Tablet PO SCH (09:29)
[2021-06-04] MEDS: Zinc Gluconate 50 MG TAB PO SCH (09:29)
[2021-06-04] MEDS: Nystatin Powder 15 GM BOT TOP SCH ×2 (09:29→20:56)
[2021-06-04] MEDS ORDERED: Pantoprazole 40 MG GRANULES PACKET PER TUBE SCH (10:00)
[2021-06-04] MEDS ORDERED: Piperacillin/Tazobactam 3.375 GM in Sodium Chloride 0.9% 100 ML IVPB SCH ×2 (10:30→12:00)
[2021-06-04] MEDS: Enoxaparin Sodium 100 MG/ML SYRINGE SC SCH (10:42)
[2021-06-04] MEDS: Albumin 25% 25 GM/100 ML BOT IVPB SCH ×2 (10:54→17:09)
[2021-06-04] MEDS ORDERED: VANCOMYCIN 2 GRAM/400 ML BAG 2 GM in Premix Bag 1 BAG IVPB SCH (13:00)
[2021-06-04] MEDS: Piperacillin/Tazobactam 3.375 GM in Sodium Chloride 0.9% 100 ML IVPB SCH (17:09)
[2021-06-04] MEDS: Pantoprazole 40 MG VIAL IVP SCH (20:51)
[2021-06-04] MEDS: Rosuvastatin 20 MG TAB PO SCH (20:52)
[2021-06-04] MEDS: BARICITINIB 2 MG TAB PO SCH (20:52)
[2021-06-05] MEDS: Piperacillin/Tazobactam 3.375 GM in Sodium Chloride 0.9% 100 ML IVPB SCH ×5 (00:22→23:52)
[2021-06-05] MEDS: Propofol 1,000 MG/100 ML VIAL IV PRN ×5 (01:20→23:41)
[2021-06-05] MEDS: methylPREDNISolone Sod Succ 40 MG VIAL IVP SCH ×4 (04:28→20:44)
[2021-06-05] MEDS: VANCOMYCIN 1.25 GM/250 ML BAG 1.25 GM in Premix Bag 1 BAG IVPB SCH ×2 (04:28→15:47)
[2021-06-05 04:32] LABS: #Monocytes 0.4 10x3/uL (0.0-1.1); #Neutrophils 11.8 10x3/uL (1.5-8.4); %Basophils 0.1 % (0.0-2.0); %Monocytes 3.2 % (0.0-10.0); %Neutrophils 91.2 % (40.0-75.0); Hemoglobin 6.8 g/dL (13.5-17.5); Mean Corpuscular HGB CONC 33.7 g/dL (32.0-36.0); Mean Corpuscular Hemoglobin 31.6 pg (27.0-33.0); Mean Platelet Volume 11.3 fl (7.4-10.4); Platelet Count 234 10x3/uL (150-450); RBC Distribution Width 17.3 % (11.5-14.5); Red Blood Cell (RBC) Count 2.15 10x6/uL (4.32-5.72)
[2021-06-05 04:47] LABS: ALT (SGPT) 37 U/L (8-55); AST (SGOT) 25 U/L (5-34); Albumin 3.5 g/dL (3.4-4.8); Alkaline Phosphatase 41 U/L (40-110); Anion Gap 12 mmol/L (10-20); BUN (Urea Nitrogen) 49 mg/dL (8.4-25.7); Bilirubin, Total 0.8 mg/dL (0.2-1.2); Calc. Creatinine Clearance 82 mL/min (70-130); Calcium 7.9 mg/dL (7.8-10.44); Carbon Dioxide 24 mmol/L (23-31); Chloride 106 mmol/L (98-107); Globulin 1.9 g/dL (2.4-3.5); Glucose 135 mg/dL (83-110); Potassium 4.1 mmol/L (3.5-5.1); Protein, Total 5.4 g/dL (5.8-8.1); Sodium 138 mmol/L (136-145)
[2021-06-05 05:40] LABS: #Monocytes 0.5 10x3/uL (0.0-1.1); #Neutrophils 10.8 10x3/uL (1.5-8.4); %Basophils 0.1 % (0.0-2.0); %Lymphocytes 5.2 % (18.0-47.0); %Monocytes 3.9 % (0.0-10.0); %Neutrophils 89.4 % (40.0-75.0); Hemoglobin 6.7 g/dL (13.5-17.5); Mean Corpuscular HGB CONC 33.5 g/dL (32.0-36.0); Mean Corpuscular Hemoglobin 31.3 pg (27.0-33.0); Mean Corpuscular Volume 93.5 fl (81.2-95.1); Mean Platelet Volume 10.9 fl (7.4-10.4); Platelet Count 220 10x3/uL (150-450); RBC Distribution Width 17.2 % (11.5-14.5); Red Blood Cell (RBC) Count 2.14 10x6/uL (4.32-5.72); White Blood Cell (WBC) Count 12.1 10x3/uL (3.5-10.5)
[2021-06-05] MEDS: fentaNYL Citrate-0.9 % NaCl/PF 100 ML IVPB SCH (06:35)
[2021-06-05] MEDS: Mometasone 100 MCG/PUFF (1 INHALER) INH SCH ×2 (07:24→21:13)
[2021-06-05 08:02] LABS: Actual Bicarbonate (HCO3a) 24.1 mEq/L (22-28); Base Excess (BEa) -0.5 mEq/L (-2.0 to +3.0); CO2 Tension 39.4 mmHg (35.0-45.0); Calcium, Ionized (arterial) 1.16 mmol/L (1.12-1.30); Hemoglobin (Hb) 7.4 g/dL (14.0-18.0); O2 Tension (PaO2), arterial 63.6 mmHg (> 70.0); Puncture Site RRA; pH, Arterial 7.41 (7.35-7.45)
[2021-06-05] MEDS: Saccharomyces boulardii 250 MG CAP PO SCH (08:04)
[2021-06-05] MEDS: Zinc Gluconate 50 MG TAB PO SCH (08:04)
[2021-06-05] MEDS: Aspirin 81 mg Enteric Coated Tablet PO SCH (08:04)
[2021-06-05] MEDS: Ascorbic Acid 500 mg Chewable Tablet PO SCH (08:04)
[2021-06-05] MEDS: Pantoprazole 40 MG VIAL IVP SCH ×2 (08:04→20:44)
[2021-06-05] MEDS: Furosemide 40 MG/4 ML VIAL SLOW IVP SCH (08:04)
[2021-06-05] MEDS: Cholecalciferol 1,000 UNITS (25 MCG) TAB PO SCH (08:04)
[2021-06-05] MEDS ORDERED: Pantoprazole 40 MG GRANULES PACKET PER TUBE SCH (09:00)
[2021-06-05] MEDS: Nystatin Powder 15 GM BOT TOP SCH ×2 (09:00→20:53)
[2021-06-05 11:35] LABS: Platelet Count 239 10x3/uL (150-450)
[2021-06-05 11:47] LABS: Prothrombin Time 11.2 sec (9.5-12.1)
[2021-06-05] MEDS: Norepinephrine 8 MG/0.9% NS 250 ML IVPB SCH (13:00)
[2021-06-05] MEDS: Rosuvastatin 20 MG TAB PO SCH (20:44)
[2021-06-05] MEDS: BARICITINIB 2 MG TAB PO SCH (20:48)
[2021-06-06 02:38] LABS: Vancomycin, Trough 20.4 ug/mL
[2021-06-06 02:41] LABS: Hemoglobin 8.2 g/dL (13.5-17.5); Mean Corpuscular HGB CONC 34.5 g/dL (32.0-36.0); Mean Corpuscular Hemoglobin 31.5 pg (27.0-33.0); Mean Corpuscular Volume 91.5 fl (81.2-95.1); Mean Platelet Volume 11.5 fl (7.4-10.4); Platelet Count 247 10x3/uL (150-450); RBC Distribution Width 17.4 % (11.5-14.5); White Blood Cell (WBC) Count 26.1 10x3/uL (3.5-10.5)
[2021-06-06 02:54] LABS: MDiff Complete? YES
[2021-06-06 02:58] LABS: Band 13 % (5-11); Lymphocytes 1 % (21-51); Monocytes 6 % (0-10); Neutrophil 80 % (42-75)
[2021-06-06 02:59] LABS: Platelet Morphology Comment Appears Adequate; Toxic Granulation SLIGHT
[2021-06-06] MEDS ORDERED: Vancomycin HCl 1 GM in Sodium Chloride 0.9% 250 ML 250 ML IVPB SCH (03:00)
[2021-06-06 03:01] LABS: RBC Morphology Normal
[2021-06-06 03:13] LABS: ALT (SGPT) 40 U/L (8-55); AST (SGOT) 30 U/L (5-34); Albumin 3.4 g/dL (3.4-4.8); Alkaline Phosphatase 49 U/L (40-110); Anion Gap 15 mmol/L (10-20); BUN (Urea Nitrogen) 48 mg/dL (8.4-25.7); Calc. Creatinine Clearance 93 mL/min (70-130); Calcium 8.2 mg/dL (7.8-10.44); Carbon Dioxide 24 mmol/L (23-31); Chloride 107 mmol/L (98-107); Globulin 2.2 g/dL (2.4-3.5); Glucose 137 mg/dL (83-110); Potassium 3.6 mmol/L (3.5-5.1); Protein, Total 5.6 g/dL (5.8-8.1); Sodium 142 mmol/L (136-145)
[2021-06-06 03:46] LABS: Bilirubin, Direct 0.5 mg/dL (0.1-0.3)
[2021-06-06] MEDS: VANCOMYCIN 1.25 GM/250 ML BAG 1.25 GM in Premix Bag 1 BAG IVPB SCH (03:58)
[2021-06-06] MEDS: methylPREDNISolone Sod Succ 40 MG VIAL IVP SCH ×4 (03:59→20:38)
[2021-06-06] MEDS: fentaNYL Citrate-0.9 % NaCl/PF 100 ML IVPB SCH (04:00)
[2021-06-06] MEDS: Propofol 1,000 MG/100 ML VIAL IV PRN ×5 (04:42→21:28)
[2021-06-06] MEDS: Budesonide 0.5 MG/2 ML NEB NEB SCH ×2 (07:15→19:35)
[2021-06-06] MEDS: Pantoprazole 40 MG VIAL IVP SCH ×2 (07:48→20:38)
[2021-06-06] MEDS: Cholecalciferol 1,000 UNITS (25 MCG) TAB PO SCH (07:48)
[2021-06-06] MEDS: Saccharomyces boulardii 250 MG CAP PO SCH (07:49)
[2021-06-06] MEDS: Aspirin 81 mg Enteric Coated Tablet PO SCH (07:49)
[2021-06-06] MEDS: Furosemide 40 MG/4 ML VIAL SLOW IVP SCH (07:49)
[2021-06-06] MEDS: Zinc Gluconate 50 MG TAB PO SCH (07:49)
[2021-06-06] MEDS: Ascorbic Acid 500 mg Chewable Tablet PO SCH (07:49)
[2021-06-06] MEDS: Piperacillin/Tazobactam 3.375 GM in Sodium Chloride 0.9% 100 ML IVPB SCH ×2 (08:51→16:37)
[2021-06-06] MEDS: Nystatin Powder 15 GM BOT TOP SCH ×2 (08:51→20:38)
[2021-06-06] MEDS: Vancomycin HCl 1 GM in Sodium Chloride 0.9% 250 ML 250 ML IVPB SCH (15:01)
[2021-06-06] MEDS: BARICITINIB 2 MG TAB PO SCH (20:37)
[2021-06-06] MEDS: Rosuvastatin 20 MG TAB PO SCH (20:38)
[2021-06-07] MEDS: Piperacillin/Tazobactam 3.375 GM in Sodium Chloride 0.9% 100 ML IVPB SCH ×3 (00:33→16:14)
[2021-06-07] MEDS: Propofol 1,000 MG/100 ML VIAL IV PRN ×5 (02:02→21:28)
[2021-06-07] MEDS: Vancomycin HCl 1 GM in Sodium Chloride 0.9% 250 ML 250 ML IVPB SCH ×2 (02:48→16:09)
[2021-06-07] MEDS: methylPREDNISolone Sod Succ 40 MG VIAL IVP SCH ×4 (02:48→21:27)
[2021-06-07] MEDS: fentaNYL Citrate-0.9 % NaCl/PF 100 ML IVPB SCH (05:18)
[2021-06-07] MEDS: Pantoprazole 40 MG VIAL IVP SCH ×2 (07:15→21:28)
[2021-06-07] MEDS: Aspirin Chewable 81 MG TAB PO SCH (07:15)
[2021-06-07] MEDS: Zinc Gluconate 50 MG TAB PO SCH (07:15)
[2021-06-07] MEDS: Ascorbic Acid 500 mg Chewable Tablet PO SCH (07:15)
[2021-06-07] MEDS: Furosemide 40 MG/4 ML VIAL SLOW IVP SCH (07:15)
[2021-06-07] MEDS: Nystatin Powder 15 GM BOT TOP SCH (07:16)
[2021-06-07] MEDS: Cholecalciferol 1,000 UNITS (25 MCG) TAB PO SCH (07:16)
[2021-06-07] MEDS: Saccharomyces boulardii 250 MG CAP PO SCH (07:16)
[2021-06-07] MEDS: Budesonide 0.5 MG/2 ML NEB NEB SCH ×2 (07:32→19:45)
[2021-06-07 15:24] LABS: Vancomycin, Trough 25.1 ug/mL
[2021-06-07] MEDS: Rosuvastatin 20 MG TAB PO SCH (21:27)
[2021-06-07] MEDS: Norepinephrine 8 MG/0.9% NS 250 ML IVPB SCH (21:28)
[2021-06-08] MEDS: Nystatin Powder 15 GM BOT TOP SCH ×3 (01:19→20:34)
[2021-06-08] MEDS: Piperacillin/Tazobactam 3.375 GM in Sodium Chloride 0.9% 100 ML IVPB SCH ×3 (01:19→17:36)
[2021-06-08] MEDS: methylPREDNISolone Sod Succ 40 MG VIAL IVP SCH ×4 (02:25→20:30)
[2021-06-08] MEDS: Propofol 1,000 MG/100 ML VIAL IV PRN ×4 (02:25→21:57)
[2021-06-08] MEDS ORDERED: Vancomycin HCl 1 GM in Sodium Chloride 0.9% 250 ML 250 ML IVPB SCH (03:00)
[2021-06-08 04:26] LABS: #Monocytes 0.2 10x3/uL (0.0-1.1); #Neutrophils 14.9 10x3/uL (1.5-8.4); %Basophils 0.1 % (0.0-2.0); %Lymphocytes 1.7 % (18.0-47.0); %Monocytes 1.3 % (0.0-10.0); %Neutrophils 96.2 % (40.0-75.0); Hemoglobin 8.7 g/dL (13.5-17.5); Mean Corpuscular HGB CONC 33.3 g/dL (32.0-36.0); Mean Corpuscular Hemoglobin 31.2 pg (27.0-33.0); Mean Corpuscular Volume 93.5 fl (81.2-95.1); Mean Platelet Volume 11.3 fl (7.4-10.4); Platelet Count 196 10x3/uL (150-450); RBC Distribution Width 17.7 % (11.5-14.5); Red Blood Cell (RBC) Count 2.79 10x6/uL (4.32-5.72); White Blood Cell (WBC) Count 15.5 10x3/uL (3.5-10.5)
[2021-06-08 04:40] LABS: Anion Gap 11 mmol/L (10-20); BUN (Urea Nitrogen) 43 mg/dL (8.4-25.7); CRP (Inflammatory) 5.41 mg/dL (= or < 0.5); Calc. Creatinine Clearance 123 mL/min (70-130); Calcium 8.2 mg/dL (7.8-10.44); Carbon Dioxide 32 mmol/L (23-31); Chloride 107 mmol/L (98-107); Glucose 141 mg/dL (83-110); Potassium 3.9 mmol/L (3.5-5.1); Sodium 146 mmol/L (136-145)
[2021-06-08 05:04] LABS: PTT 22.1 sec (22.0-33.0); Prothrombin Time 10.7 sec (9.5-12.1)
[2021-06-08] MEDS: Budesonide 0.5 MG/2 ML NEB NEB SCH ×2 (07:30→19:25)
[2021-06-08] MEDS: Pantoprazole 40 MG VIAL IVP SCH ×2 (08:39→20:30)
[2021-06-08] MEDS: Furosemide 40 MG/4 ML VIAL SLOW IVP SCH (08:39)
[2021-06-08] MEDS: Aspirin Chewable 81 MG TAB PO SCH (08:55)
[2021-06-08] MEDS: Ascorbic Acid 500 mg Chewable Tablet PO SCH (08:55)
[2021-06-08] MEDS: Saccharomyces boulardii 250 MG CAP PO SCH (08:56)
[2021-06-08] MEDS: Cholecalciferol 1,000 UNITS (25 MCG) TAB PO SCH (08:56)
[2021-06-08] MEDS: Zinc Gluconate 50 MG TAB PO SCH (08:56)
[2021-06-08] MEDS ORDERED: Fentanyl 250 MCG/5 ML VIAL ONE (11:32)
[2021-06-08] MEDS ORDERED: PROPOFOL 40 ML ONE (11:32)
[2021-06-08] MEDS ORDERED: Rocuronium Bromide 10 MG/ML (10ML VIAL) ONE (11:33)
[2021-06-08] MEDS ORDERED: PHENYLEPHRINE-NS 100 MCG/ML 10 ML SYRINGE ONE (11:35)
[2021-06-08] MEDS ORDERED: Glycopyrrolate 0.2 MG/ML 5 ML SYRINGE ONE (11:35)
[2021-06-08] MEDS ORDERED: ePHEDrine Sulfate 50 MG/10 ML VIAL ONE (11:36)
[2021-06-08] MEDS: fentaNYL Citrate-0.9 % NaCl/PF 100 ML IVPB SCH (12:22)
[2021-06-08] MEDS ORDERED: Metoprolol Tartrate 5 MG/5 ML VIAL ONE (13:46)
[2021-06-08] MEDS: Norepinephrine 8 MG/0.9% NS 250 ML IVPB SCH (14:22)
[2021-06-08] MEDS ORDERED: Digoxin 0.5 MG/2 ML AMP SLOW IVP SCH (15:00)
[2021-06-08] MEDS ORDERED: Metoprolol Tartrate 5 MG/5 ML VIAL IVP SCH (15:30)
[2021-06-08] MEDS ORDERED: AMIODARONE IVPB SCH (16:00)
[2021-06-08] MEDS ORDERED: Amiodarone In Dextrose 150 MG in Premix Bag 1 BAG IVPB SCH (16:00)
[2021-06-08] MEDS ORDERED: ADMIXTURE FEE IVPB SCH (16:00)
[2021-06-08] MEDS ORDERED: DEXTROSE IVPB SCH (16:00)
[2021-06-08] MEDS: Amiodarone In Dextrose 200 ML IVPB SCH ×2 (16:10→21:57)
[2021-06-08] MEDS: Rosuvastatin 20 MG TAB PO SCH (20:29)
[2021-06-09] MEDS: Piperacillin/Tazobactam 3.375 GM in Sodium Chloride 0.9% 100 ML IVPB SCH ×3 (00:52→17:28)
[2021-06-09] MEDS: Propofol 1,000 MG/100 ML VIAL IV PRN ×5 (02:09→21:36)
[2021-06-09] MEDS: methylPREDNISolone Sod Succ 40 MG VIAL IVP SCH ×4 (02:11→21:33)
[2021-06-09 04:01] LABS: Anion Gap 13 mmol/L (10-20); BUN (Urea Nitrogen) 35 mg/dL (8.4-25.7); Calc. Creatinine Clearance 123 mL/min (70-130); Calcium 7.8 mg/dL (7.8-10.44); Carbon Dioxide 30 mmol/L (23-31); Chloride 106 mmol/L (98-107); Glucose 134 mg/dL (83-110); Potassium 3.9 mmol/L (3.5-5.1); Sodium 145 mmol/L (136-145)
[2021-06-09 04:12] LABS: #Monocytes 0.1 10x3/uL (0.0-1.1); #Neutrophils 9.8 10x3/uL (1.5-8.4); %Basophils 0.1 % (0.0-2.0); %Lymphocytes 1.6 % (18.0-47.0); %Monocytes 1.4 % (0.0-10.0); %Neutrophils 95.7 % (40.0-75.0); Hemoglobin 7.8 g/dL (13.5-17.5); Mean Corpuscular HGB CONC 32.8 g/dL (32.0-36.0); Mean Corpuscular Hemoglobin 31.2 pg (27.0-33.0); Mean Corpuscular Volume 95.2 fl (81.2-95.1); Mean Platelet Volume 11.6 fl (7.4-10.4); Platelet Count 171 10x3/uL (150-450); RBC Distribution Width 18.2 % (11.5-14.5); White Blood Cell (WBC) Count 10.2 10x3/uL (3.5-10.5)
[2021-06-09] MEDS: fentaNYL Citrate-0.9 % NaCl/PF 100 ML IVPB SCH (05:03)
[2021-06-09] MEDS ORDERED: Propofol 1,000 MG/100 ML VIAL IV ONE (07:11)
[2021-06-09] MEDS: Budesonide 0.5 MG/2 ML NEB NEB SCH ×2 (07:27→19:55)
[2021-06-09] MEDS: Cholecalciferol 1,000 UNITS (25 MCG) TAB PO SCH (08:13)
[2021-06-09] MEDS: Zinc Gluconate 50 MG TAB PO SCH (08:13)
[2021-06-09] MEDS: Ascorbic Acid 500 mg Chewable Tablet PO SCH (08:13)
[2021-06-09] MEDS: Furosemide 40 MG/4 ML VIAL SLOW IVP SCH (08:13)
[2021-06-09] MEDS: Saccharomyces boulardii 250 MG CAP PO SCH (08:13)
[2021-06-09] MEDS: Pantoprazole 40 MG VIAL IVP SCH ×2 (08:14→21:33)
[2021-06-09] MEDS: Amiodarone In Dextrose 200 ML IVPB SCH (08:15)
[2021-06-09] MEDS: Nystatin Powder 15 GM BOT TOP SCH ×2 (09:44→21:37)
[2021-06-09] MEDS: Aspirin Chewable 81 MG TAB PO SCH (11:34)
[2021-06-09 13:52] LABS: Hemoglobin 7.5 g/dL (13.5-17.5)
[2021-06-09] MEDS ORDERED: Amiodarone 200 MG TAB PO SCH (16:00)
[2021-06-09] MEDS ORDERED: Bisacodyl 10 MG SUPP PR PRN (16:38)
[2021-06-09] MEDS: Senokot S 8.6-50 MG TAB PO SCH (21:34)
[2021-06-09] MEDS: Amiodarone 200 MG TAB PO SCH (21:35)
[2021-06-09] MEDS: Rosuvastatin 20 MG TAB PO SCH (21:36)
[2021-06-09] MEDS: Metoprolol Tartrate 5 MG/5 ML VIAL IVP PRN ×2 (21:39→23:09)
[2021-06-10] MEDS: Piperacillin/Tazobactam 3.375 GM in Sodium Chloride 0.9% 100 ML IVPB SCH ×2 (00:55→09:06)
[2021-06-10 04:08] LABS: Anion Gap 14 mmol/L (10-20); BUN (Urea Nitrogen) 48 mg/dL (8.4-25.7); Calc. Creatinine Clearance 91 mL/min (70-130); Calcium 7.9 mg/dL (7.8-10.44); Carbon Dioxide 32 mmol/L (23-31); Chloride 107 mmol/L (98-107); Glucose 137 mg/dL (83-110); Potassium 4.2 mmol/L (3.5-5.1); Sodium 149 mmol/L (136-145)
[2021-06-10 04:29] LABS: #Monocytes 0.3 10x3/uL (0.0-1.1); #Neutrophils 10.9 10x3/uL (1.5-8.4); %Basophils 0.1 % (0.0-2.0); %Lymphocytes 4.2 % (18.0-47.0); %Monocytes 2.9 % (0.0-10.0); Hemoglobin 7.5 g/dL (13.5-17.5); Mean Corpuscular HGB CONC 32.3 g/dL (32.0-36.0); Mean Corpuscular Hemoglobin 31.4 pg (27.0-33.0); Mean Corpuscular Volume 97.1 fl (81.2-95.1); Mean Platelet Volume 11.9 fl (7.4-10.4); Platelet Count 175 10x3/uL (150-450); RBC Distribution Width 18.4 % (11.5-14.5); Red Blood Cell (RBC) Count 2.39 10x6/uL (4.32-5.72); White Blood Cell (WBC) Count 11.8 10x3/uL (3.5-10.5)
[2021-06-10] MEDS: fentaNYL Citrate-0.9 % NaCl/PF 100 ML IVPB SCH (05:22)
[2021-06-10] MEDS: Propofol 1,000 MG/100 ML VIAL IV PRN ×4 (05:22→21:28)
[2021-06-10] MEDS: Norepinephrine 8 MG/0.9% NS 250 ML IVPB SCH (06:01)
[2021-06-10] MEDS: Budesonide 0.5 MG/2 ML NEB NEB SCH ×2 (08:05→17:26)
[2021-06-10] MEDS: methylPREDNISolone Sod Succ 40 MG VIAL IVP SCH ×2 (09:06→21:29)
[2021-06-10] MEDS: Furosemide 40 MG/4 ML VIAL SLOW IVP SCH (09:06)
[2021-06-10] MEDS: Ascorbic Acid 500 mg Chewable Tablet PO SCH (09:07)
[2021-06-10] MEDS: Polyethylene Glycol 3350 17 GM Packet PER TUBE SCH (09:07)
[2021-06-10] MEDS: Amiodarone 200 MG TAB PO SCH ×3 (09:07→21:29)
[2021-06-10] MEDS: Pantoprazole 40 MG VIAL IVP SCH ×2 (09:07→21:29)
[2021-06-10] MEDS: Cholecalciferol 1,000 UNITS (25 MCG) TAB PO SCH (09:08)
[2021-06-10] MEDS: Zinc Gluconate 50 MG TAB PO SCH (09:08)
[2021-06-10] MEDS: Saccharomyces boulardii 250 MG CAP PO SCH (09:08)
[2021-06-10] MEDS: Senokot S 8.6-50 MG TAB PO SCH ×2 (09:08→21:28)
[2021-06-10] MEDS: Morphine 4 MG/ML VIAL SLOW IVP PRN (09:17)
[2021-06-10] MEDS: Metoprolol Tartrate 5 MG/5 ML VIAL IVP PRN ×2 (09:27→16:49)
[2021-06-10] MEDS: Aspirin Chewable 81 MG TAB PO SCH (11:03)
[2021-06-10] MEDS: Nystatin Powder 15 GM BOT TOP SCH (11:04)
[2021-06-10] MEDS: Acetaminophen 650 MG/20.3 ML UDCUP PO PRN ×2 (12:19→21:41)
[2021-06-10 12:38] LABS: Actual Bicarbonate (HCO3a) 28.7 mEq/L (22-28); Base Excess (BEa) 4.7 mEq/L (-2.0 to +3.0); CO2 Tension 40.1 mmHg (35.0-45.0); Calcium, Ionized (arterial) 1.06 mmol/L (1.12-1.30); Carboxyhemoglobin (COHb) 0.3 gm% (0.0-3.0); Hemoglobin (Hb) 8.1 g/dL (14.0-18.0); O2 Tension (PaO2), arterial 68.4 mmHg (> 70.0); Potassium - ABG Lab 4.4 mmol/L (3.70-5.30); Puncture Site RRA; pH, Arterial 7.47 (7.35-7.45)
[2021-06-10 12:42] LABS: ALV-art Gradient 273.625 mmHg (0-20)
[2021-06-10] MEDS ORDERED: Sodium Chloride 0.9% 500 ML IVPB SCH (15:15)
[2021-06-10] MEDS ORDERED: Meropenem 1 GM in Sodium Chloride 0.9% 100 ML IVPB SCH (16:00)
[2021-06-10 16:17] LABS: #Monocytes 0.5 10x3/uL (0.0-1.1); #Neutrophils 11.1 10x3/uL (1.5-8.4); %Basophils 0.1 % (0.0-2.0); %Lymphocytes 2.7 % (18.0-47.0); %Neutrophils 92.4 % (40.0-75.0); Hemoglobin 7.5 g/dL (13.5-17.5); Mean Corpuscular HGB CONC 31.8 g/dL (32.0-36.0); Mean Corpuscular Hemoglobin 31.4 pg (27.0-33.0); Mean Corpuscular Volume 98.7 fl (81.2-95.1); Mean Platelet Volume 11.8 fl (7.4-10.4); Platelet Count 172 10x3/uL (150-450); RBC Distribution Width 18.6 % (11.5-14.5); Red Blood Cell (RBC) Count 2.39 10x6/uL (4.32-5.72); White Blood Cell (WBC) Count 12.1 10x3/uL (3.5-10.5)
[2021-06-10 18:08] LABS: Bilirubin Neg (Negative); Blood, Urine 50 (Negative); Clarity Clear (Clear); Glucose, Urine (Dipstick) Normal (Negative); Ketone, Urine Negative (Negative); Leukocyte Negative (Negative); Nitrite Negative (Negative); Protein, Urine (Dipstick) 30 mg/dl (Neg-Trace); Specific Gravity, Urine 1.015 (1.002-1.036); Urobilinogen Normal mg/dL (Less than 2)
[2021-06-10] MEDS ORDERED: Dextrose 50% Abboject 50 ML SYRINGE IVP PRN (18:30)
[2021-06-10] MEDS ORDERED: Dextrose 5% in Water 1,000 ML IV PRN (18:30)
[2021-06-10 18:35] LABS: Urine Culture Reflex No No
[2021-06-10 18:43] LABS: RBC/HPF 0-3 HPF (0-3)
[2021-06-10 18:44] LABS: Bacteria/HPF 1+ HPF (None Seen); Squamous Epithelial 0-3 HPF (0-3); WBC/HPF 0-3 HPF (0-3)
[2021-06-10 19:16] LABS: Lactic Acid 1.2 mmol/L (0.5-2.2)
[2021-06-10] MEDS: Diazepam 5 MG TAB PO SCH (21:28)
[2021-06-10] MEDS: Rosuvastatin 20 MG TAB PO SCH (21:29)
[2021-06-11] MEDS: fentaNYL Citrate-0.9 % NaCl/PF 100 ML IVPB SCH (00:47)
[2021-06-11] MEDS: Meropenem 1 GM in Sodium Chloride 0.9% 100 ML IVPB SCH ×3 (00:47→14:45)
[2021-06-11] MEDS: Norepinephrine 8 MG/0.9% NS 250 ML IVPB SCH ×2 (04:22→17:31)
[2021-06-11] MEDS: Propofol 1,000 MG/100 ML VIAL IV PRN ×4 (04:22→22:45)
[2021-06-11] MEDS ORDERED: Sodium Chloride 0.9% 1,000 ML IV SCH (05:00)
[2021-06-11] MEDS ORDERED: Midazolam HCl 2 mg/2 ml Vial SLOW IVP PRN (05:14)
[2021-06-11] MEDS: Vasopressin 20 UNIT, Admixture Fee 1 EACH in Sodium Chloride 0.9% 50 ML IV SCH ×3 (05:26→19:57)
[2021-06-11] MEDS ORDERED: Midazolam HCl 2 mg/2 ml Vial SLOW IVP SCH (06:00)
[2021-06-11 06:01] LABS: #Monocytes 0.4 10x3/uL (0.0-1.1); #Neutrophils 11.4 10x3/uL (1.5-8.4); %Basophils 0.1 % (0.0-2.0); %Lymphocytes 5.3 % (18.0-47.0); %Neutrophils 90.5 % (40.0-75.0); Hemoglobin 8.7 g/dL (13.5-17.5); Mean Corpuscular HGB CONC 31.4 g/dL (32.0-36.0); Mean Corpuscular Hemoglobin 30.7 pg (27.0-33.0); Mean Corpuscular Volume 97.9 fl (81.2-95.1); Mean Platelet Volume 11.8 fl (7.4-10.4); Platelet Count 149 10x3/uL (150-450); RBC Distribution Width 19.5 % (11.5-14.5); Red Blood Cell (RBC) Count 2.83 10x6/uL (4.32-5.72); White Blood Cell (WBC) Count 12.6 10x3/uL (3.5-10.5)
[2021-06-11 06:14] LABS: ALT (SGPT) 421 U/L (8-55); AST (SGOT) 517 U/L (5-34); Albumin 2.7 g/dL (3.4-4.8); Alkaline Phosphatase 71 U/L (40-110); Anion Gap 16 mmol/L (10-20); BUN (Urea Nitrogen) 76 mg/dL (8.4-25.7); Bilirubin, Total 0.8 mg/dL (0.2-1.2); CRP (Inflammatory) 5.66 mg/dL (= or < 0.5); Calc. Creatinine Clearance 61 mL/min (70-130); Carbon Dioxide 27 mmol/L (23-31); Chloride 116 mmol/L (98-107); Globulin 2.1 g/dL (2.4-3.5); Glucose 154 mg/dL (83-110); Potassium 3.9 mmol/L (3.5-5.1); Protein, Total 4.8 g/dL (5.8-8.1); Sodium 155 mmol/L (136-145)
[2021-06-11 07:39] LABS: Base Excess (BEa) 1.7 mEq/L (-2.0 to +3.0); CO2 Tension 27.8 mmHg (35.0-45.0); O2 Tension (PaO2), arterial 154.2 mmHg (> 70.0); Puncture Site RRA; pH, Arterial 7.54 (7.35-7.45)
[2021-06-11] MEDS: Budesonide 0.5 MG/2 ML NEB NEB SCH ×2 (07:54→20:12)
[2021-06-11] MEDS ORDERED: Digoxin 0.5 MG/2 ML AMP SLOW IVP SCH (08:00)
[2021-06-11] MEDS: Aspirin Chewable 81 MG TAB PO SCH (08:35)
[2021-06-11] MEDS: Pantoprazole 40 MG VIAL IVP SCH ×2 (08:35→20:56)
[2021-06-11] MEDS: Ascorbic Acid 500 mg Chewable Tablet PO SCH (08:36)
[2021-06-11] MEDS: Cholecalciferol 1,000 UNITS (25 MCG) TAB PO SCH (08:36)
[2021-06-11] MEDS: Saccharomyces boulardii 250 MG CAP PO SCH (08:36)
[2021-06-11] MEDS: Zinc Gluconate 50 MG TAB PO SCH (08:36)
[2021-06-11] MEDS: Diazepam 5 MG TAB PO SCH ×2 (08:36→20:56)
[2021-06-11] MEDS: Amiodarone 200 MG TAB PO SCH ×3 (08:36→20:56)
[2021-06-11] MEDS: methylPREDNISolone Sod Succ 40 MG VIAL IVP SCH ×2 (08:38→20:56)
[2021-06-11] MEDS: Senokot S 8.6-50 MG TAB PO SCH ×2 (09:35→20:58)
[2021-06-11] MEDS: Polyethylene Glycol 3350 17 GM Packet PER TUBE SCH (09:35)
[2021-06-11] MEDS: HumaLOG 300 UNITS/3 ML VIAL SC PRN ×3 (12:21→20:55)
[2021-06-11 12:46] LABS: Actual Bicarbonate (HCO3a) 26.2 mEq/L (22-28); Base Excess (BEa) 1.8 mEq/L (-2.0 to +3.0); CO2 Tension 40.4 mmHg (35.0-45.0); Calcium, Ionized (arterial) 1.04 mmol/L (1.12-1.30); Carboxyhemoglobin (COHb) 0.3 gm% (0.0-3.0); Hemoglobin (Hb) 9.8 g/dL (14.0-18.0); O2 Tension (PaO2), arterial 52.7 mmHg (> 70.0); Potassium - ABG Lab 3.6 mmol/L (3.70-5.30); Puncture Site LBA; pH, Arterial 7.43 (7.35-7.45)
[2021-06-11] MEDS ORDERED: Amiodarone In Dextrose 200 ML IVPB SCH (16:30)
[2021-06-11] MEDS ORDERED: Amiodarone In Dextrose 150 MG in Premix Bag 1 BAG IVPB SCH (16:30)
[2021-06-11] MEDS: Metoprolol Tartrate 5 MG/5 ML VIAL IVP PRN (20:42)
[2021-06-11] MEDS: Rosuvastatin 20 MG TAB PO SCH (21:00)
[2021-06-12] MEDS: Meropenem 1 GM in Sodium Chloride 0.9% 100 ML IVPB SCH ×4 (00:57→23:05)
[2021-06-12] MEDS: fentaNYL Citrate-0.9 % NaCl/PF 100 ML IVPB SCH (05:43)
[2021-06-12] MEDS: Norepinephrine 8 MG/0.9% NS 250 ML IVPB SCH ×2 (05:43→14:41)
[2021-06-12 06:05] LABS: Hemoglobin 9.5 g/dL (13.5-17.5); MDiff Complete? YES; Manual Diff?? YES; Mean Corpuscular HGB CONC 30.3 g/dL (32.0-36.0); Mean Corpuscular Hemoglobin 30.3 pg (27.0-33.0); Mean Platelet Volume 11.8 fl (7.4-10.4); Platelet Count 132 10x3/uL (150-450); RBC Distribution Width 19.5 % (11.5-14.5); Red Blood Cell (RBC) Count 3.14 10x6/uL (4.32-5.72)
[2021-06-12] MEDS: Vasopressin 20 UNIT, Admixture Fee 1 EACH in Sodium Chloride 0.9% 50 ML IV SCH ×3 (06:09→21:08)
[2021-06-12 06:20] LABS: ALT (SGPT) 476 U/L (8-55); AST (SGOT) 379 U/L (5-34); Albumin 2.7 g/dL (3.4-4.8); Alkaline Phosphatase 78 U/L (40-110); Anion Gap 15 mmol/L (10-20); BUN (Urea Nitrogen) 62 mg/dL (8.4-25.7); Bilirubin, Total 0.7 mg/dL (0.2-1.2); Calc. Creatinine Clearance 84 mL/min (70-130); Calcium 7.6 mg/dL (7.8-10.44); Carbon Dioxide 25 mmol/L (23-31); Chloride 116 mmol/L (98-107); Globulin 2.7 g/dL (2.4-3.5); Glucose 173 mg/dL (83-110); Potassium 3.8 mmol/L (3.5-5.1); Protein, Total 5.4 g/dL (5.8-8.1); Sodium 152 mmol/L (136-145)
[2021-06-12 06:29] LABS: Band 30 % (5-11); Lymphocytes 3 % (21-51); Monocytes 4 % (0-10); Neutrophil 62 % (42-75); Nucleated RBC 5 % (0); Reactive Lymphocytes 1 % (0-10)
[2021-06-12 06:30] LABS: Dohle Bodies SLIGHT; Platelet Morphology Comment Appears Decreased; Toxic Granulation SLIGHT; Vacuoles SLIGHT
[2021-06-12 06:31] LABS: Anisocytosis SLIGHT = 6-15 cells (100X) (0-5/hpf); Hypochromia SLIGHT = 6-15 cells (100X) (0-5/hpf); Macrocytosis SLIGHT = 6-15 cells (100X) (0-5/hpf); Microcytosis SLIGHT = 6-15 cells (100X) (0-5/hpf); Ovalocytes SLIGHT = 2-5 cells (100X) (0-1/hpf); Polychromasia SLIGHT = 2-3 cells (100X) (0-2/hpf)
[2021-06-12 06:59] LABS: Actual Bicarbonate (HCO3a) 29.3 mEq/L (22-28); Base Excess (BEa) 4.7 mEq/L (-2.0 to +3.0); CO2 Tension 43.9 mmHg (35.0-45.0); Calcium, Ionized (arterial) 1.11 mmol/L (1.12-1.30); Carboxyhemoglobin (COHb) 0.3 gm% (0.0-3.0); Hemoglobin (Hb) 9.1 g/dL (14.0-18.0); Potassium - ABG Lab 3.7 mmol/L (3.70-5.30); Puncture Site RRA; pH, Arterial 7.44 (7.35-7.45)
[2021-06-12 07:02] LABS: ALV-art Gradient 302.925 mmHg (0-20)
[2021-06-12] MEDS: Budesonide 0.5 MG/2 ML NEB NEB SCH ×2 (07:06→19:38)
[2021-06-12] MEDS: Diazepam 5 MG TAB PO SCH (08:23)
[2021-06-12] MEDS: Propofol 1,000 MG/100 ML VIAL IV PRN ×3 (08:23→21:08)
[2021-06-12] MEDS: Amiodarone 200 MG TAB PO SCH ×3 (08:24→21:07)
[2021-06-12] MEDS: methylPREDNISolone Sod Succ 40 MG VIAL IVP SCH ×2 (10:44→21:07)
[2021-06-12] MEDS: Saccharomyces boulardii 250 MG CAP PO SCH (10:45)
[2021-06-12] MEDS: Zinc Gluconate 50 MG TAB PO SCH (10:45)
[2021-06-12] MEDS: Pantoprazole 40 MG VIAL IVP SCH ×2 (10:45→21:09)
[2021-06-12] MEDS: Aspirin Chewable 81 MG TAB PO SCH (10:45)
[2021-06-12] MEDS: Cholecalciferol 1,000 UNITS (25 MCG) TAB PO SCH (10:46)
[2021-06-12] MEDS: Ascorbic Acid 500 mg Chewable Tablet PO SCH (10:46)
[2021-06-12] MEDS: Polyethylene Glycol 3350 17 GM Packet PER TUBE SCH (14:32)
[2021-06-12] MEDS: Senokot S 8.6-50 MG TAB PO SCH ×2 (14:32→21:09)
[2021-06-12] MEDS ORDERED: Diazepam 5 MG TAB PO SCH (15:00)
[2021-06-12] MEDS: Diazepam 5 MG TAB PER TUBE SCH ×2 (15:35→23:05)
[2021-06-12] MEDS: Rosuvastatin 20 MG TAB PO SCH (21:07)
[2021-06-12] MEDS: HumaLOG 300 UNITS/3 ML VIAL SC PRN (22:56)
[2021-06-13] MEDS: Propofol 1,000 MG/100 ML VIAL IV PRN ×4 (04:50→20:12)
[2021-06-13] MEDS: Norepinephrine 8 MG/0.9% NS 250 ML IVPB SCH (04:51)
[2021-06-13] MEDS: HumaLOG 300 UNITS/3 ML VIAL SC PRN (04:51)
[2021-06-13 05:47] LABS: ALT (SGPT) 490 U/L (8-55); AST (SGOT) 349 U/L (5-34); Albumin 2.6 g/dL (3.4-4.8); Alkaline Phosphatase 89 U/L (40-110); Anion Gap 10 mmol/L (10-20); BUN (Urea Nitrogen) 55 mg/dL (8.4-25.7); Bilirubin, Total 0.7 mg/dL (0.2-1.2); Calc. Creatinine Clearance 107 mL/min (70-130); Calcium 7.5 mg/dL (7.8-10.44); Carbon Dioxide 30 mmol/L (23-31); Chloride 118 mmol/L (98-107); Globulin 2.3 g/dL (2.4-3.5); Glucose 166 mg/dL (83-110); Potassium 4.4 mmol/L (3.5-5.1); Protein, Total 4.9 g/dL (5.8-8.1); Sodium 154 mmol/L (136-145)
[2021-06-13 06:12] LABS: Hemoglobin 7.6 g/dL (13.5-17.5); Mean Corpuscular HGB CONC 30.8 g/dL (32.0-36.0); Mean Corpuscular Hemoglobin 30.8 pg (27.0-33.0); Mean Platelet Volume 12.3 fl (7.4-10.4); Platelet Count 123 10x3/uL (150-450); RBC Distribution Width 18.7 % (11.5-14.5); Red Blood Cell (RBC) Count 2.47 10x6/uL (4.32-5.72); White Blood Cell (WBC) Count 1.6 10x3/uL (3.5-10.5)
[2021-06-13 07:04] LABS: MDiff Complete? YES
[2021-06-13 07:15] LABS: Band 11 % (5-11); Eosinophils 1 % (0-10); Lymphocytes 19 % (21-51); Monocytes 16 % (0-10); Neutrophil 52 % (42-75); Nucleated RBC 16 % (0); Promyelocytes 1 % (0-0)
[2021-06-13 07:19] LABS: Hypochromia MARKED = >30 cells (100X) (0-5/hpf); Microcytosis MODERATE=15-30 cells (100X) (0-5/hpf); Platelet Morphology Comment Appears Decreased; Polychromasia SLIGHT = 2-3 cells (100X) (0-2/hpf)
[2021-06-13 07:20] LABS: Actual Bicarbonate (HCO3a) 27.3 mEq/L (22-28); CO2 Tension 40.7 mmHg (35.0-45.0); Calcium, Ionized (arterial) 1.11 mmol/L (1.12-1.30); Carboxyhemoglobin (COHb) 0.3 gm% (0.0-3.0); Hemoglobin (Hb) 10.3 g/dL (14.0-18.0); O2 Tension (PaO2), arterial 72.2 mmHg (> 70.0); Potassium - ABG Lab 4.1 mmol/L (3.70-5.30); Puncture Site RRA; pH, Arterial 7.45 (7.35-7.45)
[2021-06-13 07:25] LABS: ALV-art Gradient 304.725 mmHg (0-20)
[2021-06-13] MEDS: Budesonide 0.5 MG/2 ML NEB NEB SCH ×2 (08:02→20:02)
[2021-06-13] MEDS ORDERED: Dextrose 5% in Water 1,000 ML IV SCH (08:15)
[2021-06-13] MEDS: Meropenem 1 GM in Sodium Chloride 0.9% 100 ML IVPB SCH ×2 (09:59→16:20)
[2021-06-13] MEDS: Ascorbic Acid 500 mg Chewable Tablet PO SCH (10:00)
[2021-06-13] MEDS: Amiodarone 200 MG TAB PO SCH ×3 (10:00→20:11)
[2021-06-13] MEDS: Diazepam 5 MG TAB PER TUBE SCH ×2 (10:00→16:20)
[2021-06-13] MEDS: Cholecalciferol 1,000 UNITS (25 MCG) TAB PO SCH (10:01)
[2021-06-13] MEDS: Aspirin Chewable 81 MG TAB PO SCH (10:01)
[2021-06-13] MEDS: Zinc Gluconate 50 MG TAB PO SCH (10:01)
[2021-06-13] MEDS: Saccharomyces boulardii 250 MG CAP PO SCH (10:01)
[2021-06-13] MEDS: Micafungin 100 MG in Sodium Chloride 0.9% 100 ML IVPB SCH (10:02)
[2021-06-13] MEDS: Polyethylene Glycol 3350 17 GM Packet PER TUBE SCH (10:02)
[2021-06-13] MEDS: Senokot S 8.6-50 MG TAB PO SCH ×2 (10:02→21:00)
[2021-06-13] MEDS: Pantoprazole 40 MG VIAL IVP SCH ×2 (10:02→20:12)
[2021-06-13] MEDS: fentaNYL Citrate-0.9 % NaCl/PF 100 ML IVPB SCH (10:59)
[2021-06-13] MEDS: methylPREDNISolone Sod Succ 40 MG VIAL IVP SCH ×2 (11:14→20:12)
[2021-06-13] MEDS: Rosuvastatin 20 MG TAB PO SCH (20:12)
[2021-06-14] MEDS: Diazepam 5 MG TAB PER TUBE SCH (01:01)
[2021-06-14] MEDS: Meropenem 1 GM in Sodium Chloride 0.9% 100 ML IVPB SCH ×3 (01:01→15:22)
[2021-06-14] MEDS: Propofol 1,000 MG/100 ML VIAL IV PRN (01:01)
[2021-06-14 04:01] LABS: Phosphorus 2.6 mg/dL (2.3-4.7)
[2021-06-14 04:02] LABS: Anion Gap 10 mmol/L (10-20); BUN (Urea Nitrogen) 60 mg/dL (8.4-25.7); Calc. Creatinine Clearance 82 mL/min (70-130); Calcium 7.3 mg/dL (7.8-10.44); Carbon Dioxide 30 mmol/L (23-31); Chloride 115 mmol/L (98-107); Glucose 175 mg/dL (83-110); Potassium 4.7 mmol/L (3.5-5.1); Sodium 150 mmol/L (136-145)
[2021-06-14 04:03] LABS: Hemoglobin 7.5 g/dL (13.5-17.5); Mean Corpuscular HGB CONC 30.2 g/dL (32.0-36.0); Mean Corpuscular Hemoglobin 30.9 pg (27.0-33.0); Mean Corpuscular Volume 102.1 fl (81.2-95.1); Mean Platelet Volume 11.7 fl (7.4-10.4); Platelet Count 101 10x3/uL (150-450); RBC Distribution Width 18.6 % (11.5-14.5); Red Blood Cell (RBC) Count 2.43 10x6/uL (4.32-5.72); White Blood Cell (WBC) Count 1.8 10x3/uL (3.5-10.5)
[2021-06-14 04:21] LABS: Anisocytosis SLIGHT = 6-15 cells (100X) (0-5/hpf); Band 28 % (5-11); Basophilic Stippling SLIGHT = 1-2 cells (100X) (None Seen); Dohle Bodies SLIGHT; Elliptocytes SLIGHT = 2-5 cells (100X) (0-1/hpf); Eosinophils 1 % (0-10); Hypochromia SLIGHT = 6-15 cells (100X) (0-5/hpf); Lymphocytes 25 % (21-51); MDiff Complete? YES; Macrocytosis SLIGHT = 6-15 cells (100X) (0-5/hpf); Metamyelocyte 3 % (0-0); Microcytosis SLIGHT = 6-15 cells (100X) (0-5/hpf); Monocytes 5 % (0-10); Neutrophil 37 % (42-75); Nucleated RBC 36 % (0); Polychromasia SLIGHT = 2-3 cells (100X) (0-2/hpf); Reactive Lymphocytes 1 % (0-10); Tear Drops SLIGHT = 2-5 cells (100X) (0-1/hpf); Toxic Granulation SLIGHT; Vacuoles SLIGHT
[2021-06-14 08:07] LABS: Actual Bicarbonate (HCO3a) 27.9 mEq/L (22-28); Base Excess (BEa) 3.9 mEq/L (-2.0 to +3.0); CO2 Tension 39.6 mmHg (35.0-45.0); Calcium, Ionized (arterial) 1.05 mmol/L (1.12-1.30); Carboxyhemoglobin (COHb) 0.3 gm% (0.0-3.0); O2 Tension (PaO2), arterial 146.1 mmHg (> 70.0); Potassium - ABG Lab 4.5 mmol/L (3.70-5.30); Puncture Site RRA; pH, Arterial 7.47 (7.35-7.45)
[2021-06-14] MEDS: Micafungin 100 MG in Sodium Chloride 0.9% 100 ML IVPB SCH (08:27)
[2021-06-14] MEDS: Zinc Gluconate 50 MG TAB PO SCH (08:28)
[2021-06-14] MEDS: methylPREDNISolone Sod Succ 40 MG VIAL IVP SCH (08:28)
[2021-06-14] MEDS: Pantoprazole 40 MG VIAL IVP SCH ×2 (08:28→20:46)
[2021-06-14] MEDS: Saccharomyces boulardii 250 MG CAP PO SCH (08:28)
[2021-06-14] MEDS: Ascorbic Acid 500 mg Chewable Tablet PO SCH (08:28)
[2021-06-14] MEDS: Aspirin Chewable 81 MG TAB PO SCH (08:28)
[2021-06-14] MEDS: Cholecalciferol 1,000 UNITS (25 MCG) TAB PO SCH (08:28)
[2021-06-14] MEDS: Amiodarone 200 MG TAB PO SCH ×3 (08:28→20:46)
[2021-06-14] MEDS: Budesonide 0.5 MG/2 ML NEB NEB SCH ×2 (09:31→19:05)
[2021-06-14] MEDS: fentaNYL Citrate-0.9 % NaCl/PF 100 ML IVPB SCH (10:25)
[2021-06-14] MEDS: Polyethylene Glycol 3350 17 GM Packet PER TUBE SCH (11:16)
[2021-06-14] MEDS: Senokot S 8.6-50 MG TAB PO SCH ×2 (11:16→20:47)
[2021-06-14] MEDS: Lorazepam 2 MG/ML VIAL SLOW IVP PRN (18:27)
[2021-06-14] MEDS: Rosuvastatin 20 MG TAB PO SCH (20:46)
[2021-06-15] MEDS: Meropenem 1 GM in Sodium Chloride 0.9% 100 ML IVPB SCH ×4 (00:26→23:56)
[2021-06-15] MEDS: Lorazepam 2 MG/ML VIAL SLOW IVP PRN ×2 (04:00→15:36)
[2021-06-15 05:59] LABS: Anion Gap 12 mmol/L (10-20); BUN (Urea Nitrogen) 73 mg/dL (8.4-25.7); Calc. Creatinine Clearance 67 mL/min (70-130); Calcium 7.3 mg/dL (7.8-10.44); Carbon Dioxide 28 mmol/L (23-31); Chloride 116 mmol/L (98-107); Glucose 127 mg/dL (83-110); Potassium 4.7 mmol/L (3.5-5.1); Sodium 151 mmol/L (136-145)
[2021-06-15] MEDS: fentaNYL Citrate-0.9 % NaCl/PF 100 ML IVPB SCH (06:40)
[2021-06-15] MEDS: Budesonide 0.5 MG/2 ML NEB NEB SCH ×2 (07:55→20:21)
[2021-06-15 08:10] LABS: Band 15 % (5-11); Hemoglobin 7.3 g/dL (13.5-17.5); Hypochromia SLIGHT = 6-15 cells (100X) (0-5/hpf); Lymphocytes 21 % (21-51); MDiff Complete? YES; Macrocytosis SLIGHT = 6-15 cells (100X) (0-5/hpf); Mean Corpuscular HGB CONC 30.8 g/dL (32.0-36.0); Mean Corpuscular Hemoglobin 31.2 pg (27.0-33.0); Mean Corpuscular Volume 101.3 fl (81.2-95.1); Mean Platelet Volume 13.1 fl (7.4-10.4); Metamyelocyte 1 % (0-0); Monocytes 3 % (0-10); Neutrophil 60 % (42-75); Nucleated RBC 25 % (0); Platelet Count 74 10x3/uL (150-450); Platelet Morphology Comment Appears Decreased; Polychromasia SLIGHT = 2-3 cells (100X) (0-2/hpf); RBC Distribution Width 18.5 % (11.5-14.5); Red Blood Cell (RBC) Count 2.34 10x6/uL (4.32-5.72); White Blood Cell (WBC) Count 1.6 10x3/uL (3.5-10.5)
[2021-06-15] MEDS: Dextrose 5% in Water 1,000 ML IV SCH (10:01)
[2021-06-15] MEDS: Cholecalciferol 1,000 UNITS (25 MCG) TAB PO SCH (10:22)
[2021-06-15] MEDS: Saccharomyces boulardii 250 MG CAP PO SCH (10:22)
[2021-06-15] MEDS: Zinc Gluconate 50 MG TAB PO SCH (10:22)
[2021-06-15] MEDS: Aspirin Chewable 81 MG TAB PO SCH (10:22)
[2021-06-15] MEDS: Ascorbic Acid 500 mg Chewable Tablet PO SCH (10:22)
[2021-06-15] MEDS: methylPREDNISolone Sod Succ 40 MG VIAL IVP SCH (10:22)
[2021-06-15] MEDS: Amiodarone 200 MG TAB PO SCH ×3 (10:22→21:59)
[2021-06-15] MEDS: Pantoprazole 40 MG VIAL IVP SCH ×2 (10:23→21:59)
[2021-06-15] MEDS: Micafungin 100 MG in Sodium Chloride 0.9% 100 ML IVPB SCH (10:23)
[2021-06-15] MEDS: Polyethylene Glycol 3350 17 GM Packet PER TUBE SCH (14:46)
[2021-06-15] MEDS: Senokot S 8.6-50 MG TAB PO SCH ×2 (14:47→21:59)
[2021-06-15] MEDS: Rosuvastatin 20 MG TAB PO SCH (21:59)
[2021-06-16 03:46] LABS: Hemoglobin 6.8 g/dL (13.5-17.5); Mean Corpuscular HGB CONC 30.2 g/dL (32.0-36.0); Mean Corpuscular Hemoglobin 30.1 pg (27.0-33.0); Mean Corpuscular Volume 99.6 fl (81.2-95.1); Platelet Count 59 10x3/uL (150-450); RBC Distribution Width 18.6 % (11.5-14.5); Red Blood Cell (RBC) Count 2.26 10x6/uL (4.32-5.72); White Blood Cell (WBC) Count 1.4 10x3/uL (3.5-10.5)
[2021-06-16 03:49] LABS: Anion Gap 13 mmol/L (10-20); BUN (Urea Nitrogen) 86 mg/dL (8.4-25.7); Calc. Creatinine Clearance 53 mL/min (70-130); Calcium 7.1 mg/dL (7.8-10.44); Carbon Dioxide 27 mmol/L (23-31); Chloride 111 mmol/L (98-107); Glucose 131 mg/dL (83-110); Potassium 4.9 mmol/L (3.5-5.1); Sodium 146 mmol/L (136-145)
[2021-06-16 03:54] LABS: MDiff Complete? YES
[2021-06-16 05:32] LABS: ALV-art Gradient 160.225 mmHg (0-20); Actual Bicarbonate (HCO3a) 27.6 mEq/L (22-28); Base Excess (BEa) 1.6 mEq/L (-2.0 to +3.0); CO2 Tension 50.7 mmHg (35.0-45.0); Calcium, Ionized (arterial) 1.09 mmol/L (1.12-1.30); Carboxyhemoglobin (COHb) 0.6 gm% (0.0-3.0); Critical Notified Whom: RN; Hemoglobin (Hb) 9.1 g/dL (14.0-18.0); O2 Tension (PaO2), arterial 61.6 mmHg (> 70.0); Potassium - ABG Lab 4.7 mmol/L (3.70-5.30); Puncture Site LRA; pH, Arterial 7.35 (7.35-7.45)
[2021-06-16 05:59] LABS: Band 2 % (5-11); Lymphocytes 19 % (21-51); Monocytes 5 % (0-10); Neutrophil 64 % (42-75); Nucleated RBC 9 % (0); Reactive Lymphocytes 10 % (0-10)
[2021-06-16 06:01] LABS: Platelet Morphology Comment Appears Decreased
[2021-06-16] MEDS: Budesonide 0.5 MG/2 ML NEB NEB SCH ×2 (07:55→19:24)
[2021-06-16] MEDS: Lorazepam 2 MG/ML VIAL SLOW IVP PRN ×2 (08:52→23:08)
[2021-06-16] MEDS: Dextrose 5% in Water 1,000 ML IV SCH (08:55)
[2021-06-16] MEDS: Saccharomyces boulardii 250 MG CAP PO SCH (10:20)
[2021-06-16] MEDS: Aspirin Chewable 81 MG TAB PO SCH (10:20)
[2021-06-16] MEDS: Ascorbic Acid 500 mg Chewable Tablet PO SCH (10:21)
[2021-06-16] MEDS: methylPREDNISolone Sod Succ 40 MG VIAL IVP SCH (10:21)
[2021-06-16] MEDS: Cholecalciferol 1,000 UNITS (25 MCG) TAB PO SCH (10:21)
[2021-06-16] MEDS: Zinc Gluconate 50 MG TAB PO SCH (10:21)
[2021-06-16] MEDS: Micafungin 100 MG in Sodium Chloride 0.9% 100 ML IVPB SCH (10:22)
[2021-06-16] MEDS: Meropenem 1 GM in Sodium Chloride 0.9% 100 ML IVPB SCH ×3 (10:22→23:24)
[2021-06-16] MEDS: Amiodarone 200 MG TAB PO SCH ×3 (10:23→21:21)
[2021-06-16] MEDS: Pantoprazole 40 MG VIAL IVP SCH ×2 (10:23→21:21)
[2021-06-16] MEDS: Polyethylene Glycol 3350 17 GM Packet PER TUBE SCH (13:34)
[2021-06-16] MEDS: Senokot S 8.6-50 MG TAB PO SCH ×2 (13:34→21:21)
[2021-06-16] MEDS: Rosuvastatin 20 MG TAB PO SCH (21:21)
[2021-06-17 03:51] LABS: Hemoglobin 8.1 g/dL (13.5-17.5); Mean Corpuscular HGB CONC 31.4 g/dL (32.0-36.0); Mean Corpuscular Volume 95.6 fl (81.2-95.1); Platelet Count 49 10x3/uL (150-450); RBC Distribution Width 18.5 % (11.5-14.5); White Blood Cell (WBC) Count 1.1 10x3/uL (3.5-10.5)
[2021-06-17 04:02] LABS: Anion Gap 15 mmol/L (10-20); BUN (Urea Nitrogen) 98 mg/dL (8.4-25.7); Calc. Creatinine Clearance 50 mL/min (70-130); Calcium 7.1 mg/dL (7.8-10.44); Carbon Dioxide 25 mmol/L (23-31); Chloride 111 mmol/L (98-107); Glucose 111 mg/dL (83-110); Potassium 4.8 mmol/L (3.5-5.1); Sodium 146 mmol/L (136-145)
[2021-06-17] MEDS: Lactated Ringer's 1,000 ML IV SCH ×2 (04:57→17:23)
[2021-06-17 05:45] LABS: Band 8 % (5-11); Eosinophils 3 % (0-10); Lymphocytes 28 % (21-51); Monocytes 6 % (0-10); Nucleated RBC 18 % (0); Reactive Lymphocytes 4 % (0-10)
[2021-06-17 05:46] LABS: Platelet Morphology Comment Appears Decreased
[2021-06-17] MEDS: Budesonide 0.5 MG/2 ML NEB NEB SCH ×2 (06:53→20:54)
[2021-06-17 08:26] LABS: Hemoglobin 9.6 g/dL (13.5-17.5); Mean Corpuscular HGB CONC 31.7 g/dL (32.0-36.0); Mean Corpuscular Hemoglobin 30.2 pg (27.0-33.0); Mean Corpuscular Volume 95.3 fl (81.2-95.1); Mean Platelet Volume 12.6 fl (7.4-10.4); Platelet Count 48 10x3/uL (150-450); RBC Distribution Width 18.6 % (11.5-14.5); Red Blood Cell (RBC) Count 3.18 10x6/uL (4.32-5.72)
[2021-06-17 08:27] LABS: MDiff Complete? YES
[2021-06-17 08:32] LABS: Neutrophil 51 % (42-75)
[2021-06-17 08:45] LABS: Band 8 % (5-11); Lymphocytes 15 % (21-51); Monocytes 6 % (0-10); Nucleated RBC 21 % (0); Reactive Lymphocytes 1 % (0-10)
[2021-06-17 08:47] LABS: Eosinophils 5 % (0-10); Neutrophil 65 % (42-75)
[2021-06-17 08:48] LABS: Platelet Morphology Comment Appears Decreased
[2021-06-17 08:50] LABS: White Blood Cell (WBC) Count 1.3 10x3/uL (3.5-10.5)
[2021-06-17 08:53] LABS: D-Dimer Test 7.29 mg/L FEU (0.19-0.50); INR-International Normal Ratio 0.9; PTT 23.6 sec (22.0-33.0); Prothrombin Time 10.5 sec (9.5-12.1)
[2021-06-17] MEDS: Norepinephrine 8 MG/0.9% NS 250 ML IVPB SCH (09:24)
[2021-06-17] MEDS: Amiodarone 200 MG TAB PO SCH ×3 (09:26→21:31)
[2021-06-17] MEDS: Ascorbic Acid 500 mg Chewable Tablet PO SCH (09:27)
[2021-06-17] MEDS: Cholecalciferol 1,000 UNITS (25 MCG) TAB PO SCH (09:27)
[2021-06-17] MEDS: Meropenem 1 GM in Sodium Chloride 0.9% 100 ML IVPB SCH ×2 (09:31→21:31)
[2021-06-17] MEDS: methylPREDNISolone Sod Succ 40 MG VIAL IVP SCH (09:32)
[2021-06-17] MEDS: Micafungin 100 MG in Sodium Chloride 0.9% 100 ML IVPB SCH (09:34)
[2021-06-17] MEDS: Pantoprazole 40 MG VIAL IVP SCH ×2 (09:36→21:32)
[2021-06-17] MEDS: Saccharomyces boulardii 250 MG CAP PO SCH (09:36)
[2021-06-17] MEDS: Polyethylene Glycol 3350 17 GM Packet PER TUBE SCH (09:36)
[2021-06-17] MEDS: Senokot S 8.6-50 MG TAB PO SCH ×2 (09:37→21:32)
[2021-06-17] MEDS: Zinc Gluconate 50 MG TAB PO SCH (09:37)
[2021-06-17 09:50] LABS: Reflex for Review?? YES
[2021-06-17 10:32] LABS: Actual Bicarbonate (HCO3a) 23.2 mEq/L (22-28); CO2 Tension 31.8 mmHg (35.0-45.0); Calcium, Ionized (arterial) 1.09 mmol/L (1.12-1.30); Carboxyhemoglobin (COHb) 0.2 gm% (0.0-3.0); Hemoglobin (Hb) 9.2 g/dL (14.0-18.0); O2 Tension (PaO2), arterial 47.4 mmHg (> 70.0); Potassium - ABG Lab 4.5 mmol/L (3.70-5.30); Puncture Site LRA; pH, Arterial 7.48 (7.35-7.45)
[2021-06-17] MEDS: Rosuvastatin 20 MG TAB PO SCH (21:31)
[2021-06-18] MEDS: Acetaminophen 650 MG/20.3 ML UDCUP PO PRN ×2 (00:52→09:18)
[2021-06-18 03:57] LABS: Hemoglobin 7.7 g/dL (13.5-17.5); Mean Corpuscular HGB CONC 30.7 g/dL (32.0-36.0); Mean Corpuscular Hemoglobin 30.1 pg (27.0-33.0); Platelet Count 49 10x3/uL (150-450); RBC Distribution Width 18.8 % (11.5-14.5); Red Blood Cell (RBC) Count 2.56 10x6/uL (4.32-5.72); White Blood Cell (WBC) Count 1.1 10x3/uL (3.5-10.5)
[2021-06-18] MEDS: Norepinephrine 8 MG/0.9% NS 250 ML IVPB SCH ×2 (03:57→19:37)
[2021-06-18 03:58] LABS: Platelet Morphology Comment Appears Decreased
[2021-06-18 04:02] LABS: Anion Gap 19 mmol/L (10-20); BUN (Urea Nitrogen) 115 mg/dL (8.4-25.7); Calc. Creatinine Clearance 40 mL/min (70-130); Calcium 6.6 mg/dL (7.8-10.44); Carbon Dioxide 18 mmol/L (23-31); Chloride 115 mmol/L (98-107); Glucose 123 mg/dL (83-110); Sodium 146 mmol/L (136-145)
[2021-06-18 04:59] LABS: Potassium 5.7 mmol/L (3.5-5.1)
[2021-06-18] MEDS ORDERED: Calcium Gluc 4.6 MEQ/10 ML (100 MG/ML) SLOW IVP SCH (06:00)
[2021-06-18] MEDS: Sodium Chloride 0.45% 1,000 ML IV SCH ×2 (06:10→19:36)
[2021-06-18 07:02] LABS: Lymphocytes 20 % (21-51); Monocytes 10 % (0-10); Nucleated RBC 11 % (0); Reactive Lymphocytes 7 % (0-10)
[2021-06-18] MEDS: Budesonide 0.5 MG/2 ML NEB NEB SCH ×2 (08:55→20:20)
[2021-06-18] MEDS: methylPREDNISolone Sod Succ 40 MG VIAL IVP SCH (09:18)
[2021-06-18] MEDS: Saccharomyces boulardii 250 MG CAP PO SCH (09:18)
[2021-06-18] MEDS: Pantoprazole 40 MG VIAL IVP SCH ×2 (09:18→20:42)
[2021-06-18] MEDS: Zinc Gluconate 50 MG TAB PO SCH (09:19)
[2021-06-18] MEDS: Ascorbic Acid 500 mg Chewable Tablet PO SCH (09:19)
[2021-06-18] MEDS: Cholecalciferol 1,000 UNITS (25 MCG) TAB PO SCH (09:19)
[2021-06-18] MEDS: Micafungin 100 MG in Sodium Chloride 0.9% 100 ML IVPB SCH (09:19)
[2021-06-18] MEDS: Amiodarone 200 MG TAB PO SCH ×3 (09:19→20:47)
[2021-06-18] MEDS: Meropenem 1 GM in Sodium Chloride 0.9% 100 ML IVPB SCH ×2 (09:19→20:47)
[2021-06-18] MEDS: Senokot S 8.6-50 MG TAB PO SCH ×2 (09:20→20:47)
[2021-06-18] MEDS: Polyethylene Glycol 3350 17 GM Packet PER TUBE SCH (11:22)
[2021-06-18] MEDS: Albumin 25% 25 GM/100 ML BOT IVPB SCH ×3 (11:42→22:59)
[2021-06-18] MEDS ORDERED: VANCOMYCIN 1.75 GM/350 ML BAG 1.75 GM in Premix Bag 1 BAG IVPB SCH (13:00)
[2021-06-18 14:01] LABS: Bilirubin Neg (Negative); Blood, Urine 250 (Negative); Clarity Clear (Clear); Glucose, Urine (Dipstick) Normal (Negative); Ketone, Urine 5 mg/dL (Negative); Leukocyte 25 (Negative); Nitrite Negative (Negative); Protein, Urine (Dipstick) 30 mg/dl (Neg-Trace); Specific Gravity, Urine 1.025 (1.002-1.036); Urobilinogen Normal mg/dL (Less than 2)
[2021-06-18 14:11] LABS: Bacteria/HPF None Seen HPF (None Seen); RBC/HPF 0-3 HPF (0-3); Squamous Epithelial 0-3 HPF (0-3); WBC/HPF 0-3 HPF (0-3)
[2021-06-18 14:13] LABS: Creatinine, Urine 93.88 mg/dL (63-166)
[2021-06-18] MEDS ORDERED: Vancomycin HCl 1 GM in Sodium Chloride 0.9% 250 ML 250 ML IVPB PRN (21:00)
[2021-06-18] MEDS: Rosuvastatin 20 MG TAB PO SCH (21:01)
[2021-06-19 04:20] LABS: Actual Bicarbonate (HCO3v) 18 mEq/L (22-28); Calcium, Ionized (venous) 0.91 mmol/L (1.16-1.32); Chloride (VBG) 108 mmol/L (98-106); Hemoglobin (Hb) 6.6 g/dL (12.6-17.4); Potassium (VBG) 5.24 mmol/L (3.70-5.30); Puncture Site Other Site; Sodium 138.8 mmol/L (133-146); pH (venous) 7.35 (7.32-7.43)
[2021-06-19 04:24] LABS: Anion Gap 21 mmol/L (10-20); Calc. Creatinine Clearance 29 mL/min (70-130); Calcium 6.8 mg/dL (7.8-10.44); Carbon Dioxide 17 mmol/L (23-31); Chloride 111 mmol/L (98-107); Glucose 115 mg/dL (83-110); Potassium 5.5 mmol/L (3.5-5.1); Sodium 143 mmol/L (136-145)
[2021-06-19 04:38] LABS: BUN (Urea Nitrogen) 143 mg/dL (8.4-25.7)
[2021-06-19 04:56] LABS: Hemoglobin 6.1 g/dL (13.5-17.5); Mean Corpuscular HGB CONC 31.4 g/dL (32.0-36.0); Mean Corpuscular Hemoglobin 30.2 pg (27.0-33.0); Mean Platelet Volume 14.3 fl (7.4-10.4); Platelet Count 46 10x3/uL (150-450); RBC Distribution Width 18.6 % (11.5-14.5); Red Blood Cell (RBC) Count 2.02 10x6/uL (4.32-5.72); White Blood Cell (WBC) Count 0.9 10x3/uL (3.5-10.5)
[2021-06-19] MEDS: Albumin 25% 25 GM/100 ML BOT IVPB SCH ×3 (05:44→18:02)
[2021-06-19 06:15] LABS: Eosinophils 1 % (0-10); Lymphocytes 30 % (21-51); Metamyelocyte 5 % (0-0); Monocytes 7 % (0-10); Myelocyte 1 % (0-0); Nucleated RBC 5 % (0); Reactive Lymphocytes 8 % (0-10)
[2021-06-19] MEDS ORDERED: Desmopressin Acetate 4 mcg/ml (1ml Chg) 10ml Vial IVP SCH (06:30)
[2021-06-19 07:25] LABS: ALT (SGPT) 449 U/L (8-55); AST (SGOT) 578 U/L (5-34); Albumin 2.7 g/dL (3.4-4.8); Alkaline Phosphatase 72 U/L (40-110); Bilirubin, Total 0.8 mg/dL (0.2-1.2); Globulin 1.7 g/dL (2.4-3.5); Protein, Total 4.4 g/dL (5.8-8.1)
[2021-06-19] MEDS: Sodium Chloride 0.45% 1,000 ML IV SCH (07:47)
[2021-06-19] MEDS: Budesonide 0.5 MG/2 ML NEB NEB SCH ×2 (07:47→20:04)
[2021-06-19] MEDS: Saccharomyces boulardii 250 MG CAP PO SCH (08:49)
[2021-06-19] MEDS: Ascorbic Acid 500 mg Chewable Tablet PO SCH (08:49)
[2021-06-19] MEDS: methylPREDNISolone Sod Succ 40 MG VIAL IVP SCH (08:49)
[2021-06-19] MEDS: Cholecalciferol 1,000 UNITS (25 MCG) TAB PO SCH (08:49)
[2021-06-19] MEDS: Amiodarone 200 MG TAB PO SCH ×3 (08:49→21:21)
[2021-06-19] MEDS: Zinc Gluconate 50 MG TAB PO SCH (08:49)
[2021-06-19] MEDS: Senokot S 8.6-50 MG TAB PO SCH ×2 (08:50→21:23)
[2021-06-19] MEDS: Polyethylene Glycol 3350 17 GM Packet PER TUBE SCH (08:50)
[2021-06-19] MEDS: Pantoprazole 80 MG in Sodium Chloride 0.9% 100 ML IVPB SCH ×2 (08:51→16:39)
[2021-06-19] MEDS: Meropenem 1 GM in Sodium Chloride 0.9% 100 ML IVPB SCH ×2 (08:54→21:21)
[2021-06-19] MEDS: Micafungin 100 MG in Sodium Chloride 0.9% 100 ML IVPB SCH (08:55)
[2021-06-19 15:26] LABS: Sodium, Urine Less than 20 mmol/L (Not Available)
[2021-06-19] MEDS: Rosuvastatin 20 MG TAB PO SCH (21:22)
[2021-06-19 21:56] LABS: Hemoglobin 6.8 g/dL (13.5-17.5); Mean Corpuscular HGB CONC 32.5 g/dL (32.0-36.0); Mean Corpuscular Hemoglobin 30.2 pg (27.0-33.0); Mean Corpuscular Volume 92.9 fl (81.2-95.1); Mean Platelet Volume 14.1 fl (7.4-10.4); Platelet Count 35 10x3/uL (150-450); Red Blood Cell (RBC) Count 2.25 10x6/uL (4.32-5.72); White Blood Cell (WBC) Count 0.8 10x3/uL (3.5-10.5)
[2021-06-19 22:19] LABS: MDiff Complete? YES
[2021-06-19 22:30] LABS: Band 10 % (5-11); Lymphocytes 26 % (21-51); Monocytes 2 % (0-10); Myelocyte 2 % (0-0); Neutrophil 60 % (42-75); Nucleated RBC 2 % (0)
[2021-06-19 22:33] LABS: Platelet Morphology Comment Appears Decreased; Rouleaux Formation SLIGHT = 1-5 cells (100X) (None Seen)
[2021-06-20] MEDS: Sodium Chloride 0.45% 1,000 ML IV SCH ×4 (00:03→20:52)
[2021-06-20] MEDS: Albumin 25% 25 GM/100 ML BOT IVPB SCH ×2 (00:03→05:53)
[2021-06-20 02:43] LABS: White Blood Cell (WBC) Count 0.8 10x3/uL (3.5-10.5)
[2021-06-20 02:55] LABS: Anion Gap 22 mmol/L (10-20); Calc. Creatinine Clearance 26 mL/min (70-130); Calcium 6.9 mg/dL (7.8-10.44); Carbon Dioxide 16 mmol/L (23-31); Chloride 108 mmol/L (98-107); Glucose 92 mg/dL (83-110); Magnesium 2.8 mg/dL (1.6-2.6); Phosphorus 8.9 mg/dL (2.3-4.7); Potassium 5.4 mmol/L (3.5-5.1); Sodium 141 mmol/L (136-145)
[2021-06-20 03:05] LABS: Band 14 % (5-11); Hemoglobin 7.6 g/dL (13.5-17.5); Lymphocytes 14 % (21-51); MDiff Complete? YES; Mean Corpuscular HGB CONC 32.5 g/dL (32.0-36.0); Mean Corpuscular Hemoglobin 30.2 pg (27.0-33.0); Mean Corpuscular Volume 92.9 fl (81.2-95.1); Mean Platelet Volume 13.9 fl (7.4-10.4); Metamyelocyte 2 % (0-0); Monocytes 14 % (0-10); Neutrophil 56 % (42-75); Nucleated RBC 6 % (0); Platelet Count 32 10x3/uL (150-450); Platelet Morphology Comment Appears Decreased; RBC Distribution Width 16.5 % (11.5-14.5); RBC Morphology Normal; Red Blood Cell (RBC) Count 2.52 10x6/uL (4.32-5.72)
[2021-06-20 03:10] LABS: BUN (Urea Nitrogen) 152 mg/dL (8.4-25.7)
[2021-06-20] MEDS: Pantoprazole 80 MG in Sodium Chloride 0.9% 100 ML IVPB SCH ×2 (04:30→16:34)
[2021-06-20 06:49] LABS: Hemoglobin 7.7 g/dL (13.5-17.5)
[2021-06-20] MEDS: Budesonide 0.5 MG/2 ML NEB NEB SCH ×2 (06:57→19:30)
[2021-06-20] MEDS: methylPREDNISolone Sod Succ 40 MG VIAL IVP SCH (08:25)
[2021-06-20] MEDS: Micafungin 100 MG in Sodium Chloride 0.9% 100 ML IVPB SCH (08:25)
[2021-06-20] MEDS: Amiodarone 200 MG TAB PO SCH ×3 (08:28→20:52)
[2021-06-20] MEDS: Cholecalciferol 1,000 UNITS (25 MCG) TAB PO SCH (08:28)
[2021-06-20] MEDS: Zinc Gluconate 50 MG TAB PO SCH (08:28)
[2021-06-20] MEDS: Saccharomyces boulardii 250 MG CAP PO SCH (08:28)
[2021-06-20] MEDS: Ascorbic Acid 500 mg Chewable Tablet PO SCH (08:28)
[2021-06-20] MEDS: Polyethylene Glycol 3350 17 GM Packet PER TUBE SCH (08:29)
[2021-06-20] MEDS: Senokot S 8.6-50 MG TAB PO SCH ×2 (08:29→20:52)
[2021-06-20] MEDS: Meropenem 1 GM in Sodium Chloride 0.9% 100 ML IVPB SCH ×3 (08:44→20:52)
[2021-06-20 10:38] LABS: Hemoglobin 7.4 g/dL (13.5-17.5)
[2021-06-20 11:01] LABS: Vancomycin, Random 16.7 ug/mL (See Comment)
[2021-06-20] MEDS ORDERED: Vancomycin HCl 1 GM in Sodium Chloride 0.9% 250 ML 250 ML IVPB SCH (11:15)
[2021-06-20] MEDS ORDERED: Albumin 25% 25 GM/100 ML BOT IVPB SCH (12:00)
[2021-06-20] MEDS: Norepinephrine 8 MG/0.9% NS 250 ML IVPB SCH (13:23)
[2021-06-20 18:25] LABS: Anion Gap 22 mmol/L (10-20); Calc. Creatinine Clearance 26 mL/min (70-130); Carbon Dioxide 14 mmol/L (23-31); Chloride 108 mmol/L (98-107); Glucose 92 mg/dL (83-110); Potassium 5.5 mmol/L (3.5-5.1); Sodium 138 mmol/L (136-145)
[2021-06-20 18:37] LABS: BUN (Urea Nitrogen) 159 mg/dL (8.4-25.7)
[2021-06-20] MEDS: Rosuvastatin 20 MG TAB PO SCH (20:52)
[2021-06-20] MEDS: Lorazepam 2 MG/ML VIAL SLOW IVP PRN (22:19)
[2021-06-21 03:36] LABS: Anion Gap 23 mmol/L (10-20); Calc. Creatinine Clearance 25 mL/min (70-130); Calcium 6.8 mg/dL (7.8-10.44); Carbon Dioxide 13 mmol/L (23-31); Chloride 107 mmol/L (98-107); Glucose 80 mg/dL (83-110); Potassium 5.5 mmol/L (3.5-5.1); Sodium 137 mmol/L (136-145)
[2021-06-21 03:46] LABS: BUN (Urea Nitrogen) 164 mg/dL (8.4-25.7)
[2021-06-21 03:56] LABS: Band 7 % (5-11); Hemoglobin 7.9 g/dL (13.5-17.5); Lymphocytes 11 % (21-51); MDiff Complete? YES; Mean Corpuscular HGB CONC 32.5 g/dL (32.0-36.0); Mean Corpuscular Hemoglobin 29.8 pg (27.0-33.0); Mean Corpuscular Volume 91.7 fl (81.2-95.1); Mean Platelet Volume 13.8 fl (7.4-10.4); Monocytes 8 % (0-10); Myelocyte 1 % (0-0); Neutrophil 71 % (42-75); Nucleated RBC 1 % (0); Platelet Count 36 10x3/uL (150-450); Platelet Morphology Comment Appears Decreased; RBC Distribution Width 16.6 % (11.5-14.5); RBC Morphology Normal; Reactive Lymphocytes 2 % (0-10); Red Blood Cell (RBC) Count 2.65 10x6/uL (4.32-5.72); Toxic Granulation SLIGHT; White Blood Cell (WBC) Count 1.5 10x3/uL (3.5-10.5)
[2021-06-21] MEDS: Sodium Chloride 0.45% 1,000 ML IV SCH ×2 (06:05→14:15)
[2021-06-21] MEDS: Budesonide 0.5 MG/2 ML NEB NEB SCH ×2 (07:30→22:16)
[2021-06-21] MEDS: methylPREDNISolone Sod Succ 40 MG VIAL IVP SCH (08:21)
[2021-06-21] MEDS: Meropenem 1 GM in Sodium Chloride 0.9% 100 ML IVPB SCH ×2 (08:22→20:13)
[2021-06-21] MEDS: Micafungin 100 MG in Sodium Chloride 0.9% 100 ML IVPB SCH (08:23)
[2021-06-21] MEDS: Ascorbic Acid 500 mg Chewable Tablet PO SCH (08:30)
[2021-06-21] MEDS: Amiodarone 200 MG TAB PO SCH ×3 (08:30→20:14)
[2021-06-21] MEDS: Zinc Gluconate 50 MG TAB PO SCH (08:30)
[2021-06-21] MEDS: Senokot S 8.6-50 MG TAB PO SCH ×2 (08:31→20:14)
[2021-06-21] MEDS: Saccharomyces boulardii 250 MG CAP PO SCH (08:31)
[2021-06-21] MEDS: Polyethylene Glycol 3350 17 GM Packet PER TUBE SCH (08:31)
[2021-06-21] MEDS: Cholecalciferol 1,000 UNITS (25 MCG) TAB PO SCH (08:31)
[2021-06-21] MEDS: Morphine 4 MG/ML VIAL SLOW IVP PRN (10:00)
[2021-06-21 10:30] LABS: Vancomycin, Random 22.7 ug/mL (See Comment)
[2021-06-21 10:39] LABS: Hemoglobin 8.8 g/dL (13.5-17.5); Mean Corpuscular HGB CONC 33.1 g/dL (32.0-36.0); Mean Corpuscular Hemoglobin 30.4 pg (27.0-33.0); Platelet Count 42 10x3/uL (150-450); RBC Distribution Width 16.8 % (11.5-14.5); Red Blood Cell (RBC) Count 2.89 10x6/uL (4.32-5.72); White Blood Cell (WBC) Count 1.9 10x3/uL (3.5-10.5)
[2021-06-21 10:40] LABS: MDiff Complete? YES
[2021-06-21 11:03] LABS: Band 6 % (5-11); Lymphocytes 12 % (21-51); Monocytes 5 % (0-10); Neutrophil 77 % (42-75); Nucleated RBC 1 % (0)
[2021-06-21 11:05] LABS: Anisocytosis SLIGHT = 6-15 cells (100X) (0-5/hpf); Ovalocytes SLIGHT = 2-5 cells (100X) (0-1/hpf)
[2021-06-21 11:06] LABS: Dohle Bodies SLIGHT; Toxic Granulation SLIGHT
[2021-06-21 11:07] LABS: Platelet Morphology Comment Appears Decreased
[2021-06-21] MEDS ORDERED: Vancomycin HCl 500 MG in Sodium Chloride 0.9% 100 ML IVPB SCH (12:00)
[2021-06-21] MEDS: Fentanyl 100 MCG/2 ML VIAL SLOW IVP PRN (12:20)
[2021-06-21] MEDS: fentaNYL 50 mcg/hour Patch TD SCH (12:22)
[2021-06-21] MEDS ORDERED: Desmopressin Acetate 4 mcg/ml (1ml Chg) 10ml Vial IVP SCH (16:15)
[2021-06-21] MEDS: Pantoprazole 80 MG in Sodium Chloride 0.9% 100 ML IVPB SCH (18:21)
[2021-06-21] MEDS: Rosuvastatin 20 MG TAB PO SCH (20:13)
[2021-06-21 21:03] LABS: INR-International Normal Ratio 1.3; PTT 30.4 sec (22.0-33.0); Prothrombin Time 13.7 sec (9.5-12.1)
[2021-06-22] MEDS: Norepinephrine 8 MG/0.9% NS 250 ML IVPB SCH (04:38)
[2021-06-22 04:42] LABS: Anion Gap 24 mmol/L (10-20); Calc. Creatinine Clearance 23 mL/min (70-130); Calcium 6.7 mg/dL (7.8-10.44); Carbon Dioxide 10 mmol/L (23-31); Chloride 107 mmol/L (98-107); Glucose 95 mg/dL (83-110); Potassium 6.3 mmol/L (3.5-5.1); Sodium 135 mmol/L (136-145)
[2021-06-22 04:44] LABS: ALT (SGPT) 215 U/L (8-55); AST (SGOT) 262 U/L (5-34); Albumin 2.9 g/dL (3.4-4.8); Alkaline Phosphatase 65 U/L (40-110); Bilirubin, Direct 0.7 mg/dL (0.1-0.3); Bilirubin, Total 1.2 mg/dL (0.2-1.2); Protein, Total 4.6 g/dL (5.8-8.1)
[2021-06-22 04:52] LABS: BUN (Urea Nitrogen) 176 mg/dL (8.4-25.7)
[2021-06-22 05:18] LABS: Band 11 % (5-11); Burr Cells SLIGHT = 2-5 cells (100X) (0-1/hpf); Hemoglobin 9.4 g/dL (13.5-17.5); Lymphocytes 7 % (21-51); MDiff Complete? YES; Mean Corpuscular HGB CONC 32.3 g/dL (32.0-36.0); Mean Corpuscular Hemoglobin 30.1 pg (27.0-33.0); Mean Corpuscular Volume 93.3 fl (81.2-95.1); Mean Platelet Volume 13.6 fl (7.4-10.4); Monocytes 3 % (0-10); Neutrophil 78 % (42-75); Nucleated RBC 1 % (0); Platelet Morphology Comment Appears Decreased; RBC Distribution Width 16.9 % (11.5-14.5); Reactive Lymphocytes 1 % (0-10); Red Blood Cell (RBC) Count 3.12 10x6/uL (4.32-5.72); White Blood Cell (WBC) Count 3.1 10x3/uL (3.5-10.5)
[2021-06-22 05:19] LABS: Platelet Count 53 10x3/uL (150-450)
[2021-06-22] MEDS: Pantoprazole 80 MG in Sodium Chloride 0.9% 100 ML IVPB SCH ×2 (05:26→16:22)
[2021-06-22] MEDS: Sodium Chloride 0.45% 1,000 ML IV SCH ×2 (05:27→14:34)
[2021-06-22] MEDS: Budesonide 0.5 MG/2 ML NEB NEB SCH ×2 (07:30→19:45)
[2021-06-22] MEDS ORDERED: Desmopressin Acetate 4 mcg/ml (1ml Chg) 10ml Vial IVP SCH (08:00)
[2021-06-22] MEDS: Zinc Gluconate 50 MG TAB PO SCH (09:04)
[2021-06-22] MEDS: Cholecalciferol 1,000 UNITS (25 MCG) TAB PO SCH (09:04)
[2021-06-22] MEDS: Amiodarone 200 MG TAB PO SCH ×4 (09:04→21:05)
[2021-06-22] MEDS: Ascorbic Acid 500 mg Chewable Tablet PO SCH (09:04)
[2021-06-22] MEDS: methylPREDNISolone Sod Succ 40 MG VIAL IVP SCH (09:05)
[2021-06-22] MEDS: Micafungin 100 MG in Sodium Chloride 0.9% 100 ML IVPB SCH (09:06)
[2021-06-22] MEDS: Meropenem 1 GM in Sodium Chloride 0.9% 100 ML IVPB SCH ×2 (09:07→21:05)
[2021-06-22] MEDS: Senokot S 8.6-50 MG TAB PO SCH ×2 (09:08→21:03)
[2021-06-22] MEDS: Polyethylene Glycol 3350 17 GM Packet PER TUBE SCH (09:12)
[2021-06-22] MEDS: Saccharomyces boulardii 250 MG CAP PO SCH (09:14)
[2021-06-22 10:50] LABS: Vancomycin, Random 24.2 ug/mL (See Comment)
[2021-06-22 10:58] LABS: Hep B Surf Ag Non-Reactive S/CO (NonReactive)
[2021-06-22 11:06] LABS: HBSAg Index 0.22 S/CO (0-0.99)
[2021-06-22] MEDS ORDERED: Vancomycin HCl 1.5 GM in Sodium Chloride 0.9% 250 ML 300 ML IVPB SCH (12:15)
[2021-06-22] MEDS ORDERED: Vancomycin HCl 1.25 GM in Sodium Chloride 0.9% 250 ML 250 ML IVPB SCH (12:15)
[2021-06-22] MEDS ORDERED: Vancomycin 1 GM in Premix Bag 1 BAG IVPB SCH (12:15)
[2021-06-22] MEDS ORDERED: HOLD VANCOMYCIN FOR LEVEL >20 FS SCH (12:15)
[2021-06-22] MEDS ORDERED: Vancomycin HCl 750 MG in Sodium Chloride 0.9% 250 ML 250 ML IVPB SCH (12:15)
[2021-06-22 14:50] LABS: HBSAB Concentration Less than 8.00 mIU/mL; Hep B Core Total Ab Non-Reactive (NonReactive); Hep B Core Total Index 0.03 S/CO (0-0.79); Hep B Surf AB Non-Reactive (NonReactive); Hep C IgG Ab Non-Reactive (NonReactive); Hep C Index 0.06 S/CO (0-0.79)
[2021-06-22] MEDS: Rosuvastatin 20 MG TAB PO SCH (21:05)
[2021-06-23 04:11] LABS: Anion Gap 24 mmol/L (10-20); Calc. Creatinine Clearance 23 mL/min (70-130); Carbon Dioxide 13 mmol/L (23-31); Chloride 105 mmol/L (98-107); Glucose 87 mg/dL (83-110); Potassium 5.7 mmol/L (3.5-5.1); Sodium 136 mmol/L (136-145)
[2021-06-23 04:21] LABS: BUN (Urea Nitrogen) 158 mg/dL (8.4-25.7)
[2021-06-23 04:29] LABS: Hemoglobin 7.7 g/dL (13.5-17.5); Mean Corpuscular HGB CONC 33.3 g/dL (32.0-36.0); Mean Corpuscular Hemoglobin 30.2 pg (27.0-33.0); Mean Corpuscular Volume 90.6 fl (81.2-95.1); Mean Platelet Volume 11.6 fl (7.4-10.4); Platelet Count 62 10x3/uL (150-450); RBC Distribution Width 16.4 % (11.5-14.5); Red Blood Cell (RBC) Count 2.55 10x6/uL (4.32-5.72); White Blood Cell (WBC) Count 3.6 10x3/uL (3.5-10.5)
[2021-06-23 04:38] LABS: Calcium 5.8 mg/dL (7.8-10.44)
[2021-06-23] MEDS: Pantoprazole 80 MG in Sodium Chloride 0.9% 100 ML IVPB SCH ×2 (04:48→16:54)
[2021-06-23 05:11] LABS: MDiff Complete? YES
[2021-06-23 05:14] LABS: Anisocytosis SLIGHT = 6-15 cells (100X) (0-5/hpf); Burr Cells SLIGHT = 2-5 cells (100X) (0-1/hpf); Platelet Morphology Comment Appears Decreased
[2021-06-23 05:19] LABS: Band 6 % (5-11); Eosinophils 1 % (0-10); Lymphocytes 6 % (21-51); Monocytes 7 % (0-10); Neutrophil 80 % (42-75); Nucleated RBC 1 % (0)
[2021-06-23 05:20] LABS: Hypochromia SLIGHT = 6-15 cells (100X) (0-5/hpf)
[2021-06-23 05:21] LABS: Elliptocytes SLIGHT = 2-5 cells (100X) (0-1/hpf)
[2021-06-23 07:01] LABS: Vancomycin, Random 22.9 ug/mL (See Comment)
[2021-06-23] MEDS: Budesonide 0.5 MG/2 ML NEB NEB SCH ×2 (07:39→19:15)
[2021-06-23] MEDS ORDERED: Calcium Gluconate 4.6 MEQ in Sodium Chloride 0.9% 100 ML IVPB SCH (07:55)
[2021-06-23] MEDS: Polyethylene Glycol 3350 17 GM Packet PER TUBE SCH (08:13)
[2021-06-23] MEDS: Senokot S 8.6-50 MG TAB PO SCH ×2 (08:13→20:40)
[2021-06-23] MEDS: Ascorbic Acid 500 mg Chewable Tablet PO SCH (08:15)
[2021-06-23] MEDS: Cholecalciferol 1,000 UNITS (25 MCG) TAB PO SCH (08:15)
[2021-06-23] MEDS: Zinc Gluconate 50 MG TAB PO SCH (08:15)
[2021-06-23] MEDS: Sucralfate 1 GM TAB PO SCH ×4 (08:16→20:40)
[2021-06-23] MEDS: Meropenem 1 GM in Sodium Chloride 0.9% 100 ML IVPB SCH (08:16)
[2021-06-23] MEDS: Saccharomyces boulardii 250 MG CAP PO SCH (08:16)
[2021-06-23] MEDS: Micafungin 100 MG in Sodium Chloride 0.9% 100 ML IVPB SCH (08:16)
[2021-06-23] MEDS: methylPREDNISolone Sod Succ 40 MG VIAL IVP SCH (08:17)
[2021-06-23] MEDS: Amiodarone 200 MG TAB PO SCH ×3 (08:27→20:40)
[2021-06-23] MEDS: Fentanyl 100 MCG/2 ML VIAL SLOW IVP PRN (19:34)
[2021-06-23] MEDS: cefTRIAXone\\ROCEPHIN 2 GM in Sodium Chloride 0.9% 100 ML IVPB SCH (20:39)
[2021-06-23] MEDS: Rosuvastatin 20 MG TAB PO SCH (20:41)
[2021-06-24 04:22] LABS: Hemoglobin 8.2 g/dL (13.5-17.5); Mean Corpuscular HGB CONC 33.1 g/dL (32.0-36.0); Mean Corpuscular Hemoglobin 29.6 pg (27.0-33.0); Mean Corpuscular Volume 89.5 fl (81.2-95.1); Mean Platelet Volume 12.9 fl (7.4-10.4); Platelet Count 56 10x3/uL (150-450); RBC Distribution Width 16.5 % (11.5-14.5); Red Blood Cell (RBC) Count 2.77 10x6/uL (4.32-5.72); White Blood Cell (WBC) Count 4.6 10x3/uL (3.5-10.5)
[2021-06-24 04:30] LABS: Anion Gap 23 mmol/L (10-20); Calc. Creatinine Clearance 28 mL/min (70-130); Carbon Dioxide 14 mmol/L (23-31); Chloride 103 mmol/L (98-107); Glucose 87 mg/dL (83-110); Sodium 135 mmol/L (136-145)
[2021-06-24 04:33] LABS: BUN (Urea Nitrogen) Greater than 125 mg/dL (8.4-25.7); Calcium 5.8 mg/dL (7.8-10.44)
[2021-06-24 04:34] LABS: Vancomycin, Random 21.4 ug/mL (See Comment)
[2021-06-24] MEDS: Fentanyl 100 MCG/2 ML VIAL SLOW IVP PRN ×3 (04:56→23:20)
[2021-06-24 05:01] LABS: MDiff Complete? YES
[2021-06-24] MEDS: Pantoprazole 80 MG in Sodium Chloride 0.9% 100 ML IVPB SCH (05:04)
[2021-06-24 05:05] LABS: Anisocytosis SLIGHT = 6-15 cells (100X) (0-5/hpf); Burr Cells SLIGHT = 2-5 cells (100X) (0-1/hpf); Elliptocytes SLIGHT = 2-5 cells (100X) (0-1/hpf); Platelet Morphology Comment Appears Decreased; Toxic Granulation SLIGHT
[2021-06-24 05:09] LABS: Band 11 % (5-11); Lymphocytes 8 % (21-51); Monocytes 7 % (0-10); Neutrophil 74 % (42-75)
[2021-06-24 05:11] LABS: Hypochromia SLIGHT = 6-15 cells (100X) (0-5/hpf)
[2021-06-24] MEDS ORDERED: Calcium Gluconate 4.6 MEQ in Sodium Chloride 0.9% 100 ML IVPB SCH (05:28)
[2021-06-24] MEDS: Budesonide 0.5 MG/2 ML NEB NEB SCH ×2 (07:25→19:05)
[2021-06-24] MEDS: Norepinephrine 8 MG/0.9% NS 250 ML IVPB SCH (10:00)
[2021-06-24] MEDS ORDERED: Albumin 25% 200 ML ONE (10:00)
[2021-06-24] MEDS: Metoprolol Tartrate 5 MG/5 ML VIAL IVP PRN (10:25)
[2021-06-24] MEDS: methylPREDNISolone Sod Succ 40 MG VIAL IVP SCH (10:33)
[2021-06-24] MEDS: Ascorbic Acid 500 mg Chewable Tablet PO SCH (10:34)
[2021-06-24] MEDS: Saccharomyces boulardii 250 MG CAP PO SCH (10:35)
[2021-06-24] MEDS: Sucralfate 1 GM TAB PO SCH ×4 (10:35→20:33)
[2021-06-24] MEDS: Senokot S 8.6-50 MG TAB PO SCH ×2 (10:36→20:33)
[2021-06-24] MEDS: Polyethylene Glycol 3350 17 GM Packet PER TUBE SCH (10:36)
[2021-06-24] MEDS: Micafungin 100 MG in Sodium Chloride 0.9% 100 ML IVPB SCH (10:37)
[2021-06-24] MEDS: Amiodarone 200 MG TAB PO SCH ×3 (10:39→20:33)
[2021-06-24] MEDS: Zinc Gluconate 50 MG TAB PO SCH (10:39)
[2021-06-24] MEDS: Cholecalciferol 1,000 UNITS (25 MCG) TAB PO SCH (10:39)
[2021-06-24] MEDS ORDERED: Albumin 25% 25 GM/100 ML BOT IVPB SCH (11:00)
[2021-06-24] MEDS: fentaNYL 50 mcg/hour Patch TD SCH (13:42)
[2021-06-24] MEDS: Pantoprazole 40 MG VIAL IVP SCH (20:33)
[2021-06-24] MEDS: cefTRIAXone\\ROCEPHIN 2 GM in Sodium Chloride 0.9% 100 ML IVPB SCH (20:33)
[2021-06-24] MEDS: Rosuvastatin 20 MG TAB PO SCH (20:33)
[2021-06-25 04:15] LABS: Hemoglobin 7.6 g/dL (13.5-17.5); Mean Corpuscular HGB CONC 32.8 g/dL (32.0-36.0); Mean Corpuscular Hemoglobin 30.4 pg (27.0-33.0); Mean Corpuscular Volume 92.8 fl (81.2-95.1); Mean Platelet Volume 14.2 fl (7.4-10.4); Platelet Count 49 10x3/uL (150-450); RBC Distribution Width 16.8 % (11.5-14.5); White Blood Cell (WBC) Count 5.2 10x3/uL (3.5-10.5)
[2021-06-25 04:40] LABS: ALT (SGPT) 75 U/L (8-55); AST (SGOT) 228 U/L (5-34); Albumin 3.1 g/dL (3.4-4.8); Alkaline Phosphatase 136 U/L (40-110); Anion Gap 19 mmol/L (10-20); BUN (Urea Nitrogen) 96 mg/dL (8.4-25.7); Bilirubin, Total 0.9 mg/dL (0.2-1.2); Calc. Creatinine Clearance 33 mL/min (70-130); Calcium 6.7 mg/dL (7.8-10.44); Carbon Dioxide 19 mmol/L (23-31); Chloride 103 mmol/L (98-107); Globulin 1.8 g/dL (2.4-3.5); Glucose 146 mg/dL (83-110); Potassium 4.1 mmol/L (3.5-5.1); Protein, Total 4.9 g/dL (5.8-8.1); Sodium 137 mmol/L (136-145)
[2021-06-25 04:55] LABS: MDiff Complete? YES
[2021-06-25] MEDS ORDERED: Lorazepam 2 MG/ML VIAL SLOW IVP SCH (05:00)
[2021-06-25 05:11] LABS: Hypochromia SLIGHT = 6-15 cells (100X) (0-5/hpf)
[2021-06-25 05:12] LABS: Elliptocytes SLIGHT = 2-5 cells (100X) (0-1/hpf); Platelet Morphology Comment Appears Decreased
[2021-06-25 05:15] LABS: Band 7 % (5-11); Lymphocytes 9 % (21-51); Monocytes 3 % (0-10); Neutrophil 81 % (42-75)
[2021-06-25 05:52] LABS: Vancomycin, Random 17.5 ug/mL (See Comment)
[2021-06-25] MEDS: Budesonide 0.5 MG/2 ML NEB NEB SCH ×2 (07:21→19:05)
[2021-06-25] MEDS: Sucralfate 1 GM TAB PO SCH ×4 (08:47→20:22)
[2021-06-25] MEDS: Norepinephrine 8 MG/0.9% NS 250 ML IVPB SCH (10:10)
[2021-06-25] MEDS: methylPREDNISolone Sod Succ 40 MG VIAL IVP SCH (10:20)
[2021-06-25] MEDS: Pantoprazole 40 MG VIAL IVP SCH ×2 (10:21→20:23)
[2021-06-25] MEDS: Metoprolol Tartrate 5 MG/5 ML VIAL IVP PRN (10:21)
[2021-06-25] MEDS: Micafungin 100 MG in Sodium Chloride 0.9% 100 ML IVPB SCH (10:22)
[2021-06-25] MEDS: Saccharomyces boulardii 250 MG CAP PO SCH (10:23)
[2021-06-25] MEDS: Ascorbic Acid 500 mg Chewable Tablet PO SCH (10:24)
[2021-06-25] MEDS: Cholecalciferol 1,000 UNITS (25 MCG) TAB PO SCH (10:24)
[2021-06-25] MEDS: Amiodarone 200 MG TAB PO SCH ×3 (10:24→20:22)
[2021-06-25] MEDS: Zinc Gluconate 50 MG TAB PO SCH (10:25)
[2021-06-25] MEDS: Senokot S 8.6-50 MG TAB PO SCH ×2 (10:25→20:22)
[2021-06-25] MEDS: Polyethylene Glycol 3350 17 GM Packet PER TUBE SCH (10:25)
[2021-06-25] MEDS ORDERED: Vancomycin HCl 750 MG in Sodium Chloride 0.9% 250 ML 250 ML IVPB SCH (11:00)
[2021-06-25] MEDS ORDERED: Albumin 25% 100 ML ONE (11:06)
[2021-06-25] MEDS ORDERED: Albumin 25% 25 GM/100 ML BOT IVPB SCH (11:15)
[2021-06-25] MEDS: Rosuvastatin 20 MG TAB PO SCH (20:22)
[2021-06-25] MEDS: cefTRIAXone\\ROCEPHIN 2 GM in Sodium Chloride 0.9% 100 ML IVPB SCH (20:25)
[2021-06-25] MEDS: HumaLOG 300 UNITS/3 ML VIAL SC PRN (22:00)
[2021-06-26 03:47] LABS: Platelet Count 46 10x3/uL (150-450)
[2021-06-26 03:48] LABS: Hemoglobin 5.3 g/dL (13.5-17.5); Mean Corpuscular HGB CONC 32.9 g/dL (32.0-36.0); Mean Corpuscular Hemoglobin 30.5 pg (27.0-33.0); Mean Corpuscular Volume 92.5 fl (81.2-95.1); Mean Platelet Volume 13.6 fl (7.4-10.4); RBC Distribution Width 16.5 % (11.5-14.5); Red Blood Cell (RBC) Count 1.74 10x6/uL (4.32-5.72); White Blood Cell (WBC) Count 4.1 10x3/uL (3.5-10.5)
[2021-06-26 03:54] LABS: Vancomycin, Random 13.7 ug/mL (See Comment)
[2021-06-26 03:56] LABS: ALT (SGPT) 45 U/L (8-55); AST (SGOT) 173 U/L (5-34); Albumin 2.9 g/dL (3.4-4.8); Alkaline Phosphatase 116 U/L (40-110); Anion Gap 17 mmol/L (10-20); BUN (Urea Nitrogen) 73 mg/dL (8.4-25.7); Bilirubin, Total 0.8 mg/dL (0.2-1.2); Calc. Creatinine Clearance 43 mL/min (70-130); Calcium 6.8 mg/dL (7.8-10.44); Carbon Dioxide 20 mmol/L (23-31); Chloride 103 mmol/L (98-107); Globulin 1.1 g/dL (2.4-3.5); Glucose 135 mg/dL (83-110); Potassium 3.6 mmol/L (3.5-5.1); Sodium 136 mmol/L (136-145)
[2021-06-26 04:11] LABS: MDiff Complete? YES
[2021-06-26 04:13] LABS: Elliptocytes SLIGHT = 2-5 cells (100X) (0-1/hpf); Microcytosis SLIGHT = 6-15 cells (100X) (0-5/hpf)
[2021-06-26 04:14] LABS: Platelet Morphology Comment Appears Decreased
[2021-06-26 04:18] LABS: Band 11 % (5-11); Lymphocytes 14 % (21-51); Monocytes 3 % (0-10); Neutrophil 71 % (42-75); Reactive Lymphocytes 1 % (0-10)
[2021-06-26 05:39] LABS: INR-International Normal Ratio 1.3; PTT 25.7 sec (22.0-33.0); Prothrombin Time 14.3 sec (9.5-12.1)
[2021-06-26] MEDS: Budesonide 0.5 MG/2 ML NEB NEB SCH ×2 (07:17→19:00)
[2021-06-26] MEDS: Sucralfate 1 GM TAB PO SCH ×2 (07:58→15:58)
[2021-06-26] MEDS: Amiodarone 200 MG TAB PO SCH ×3 (09:33→21:29)
[2021-06-26] MEDS: Zinc Gluconate 50 MG TAB PO SCH (09:34)
[2021-06-26] MEDS: Saccharomyces boulardii 250 MG CAP PO SCH (09:34)
[2021-06-26] MEDS: Cholecalciferol 1,000 UNITS (25 MCG) TAB PO SCH (09:34)
[2021-06-26] MEDS: Ascorbic Acid 500 mg Chewable Tablet PO SCH (09:34)
[2021-06-26] MEDS: Metoprolol Tartrate 5 MG/5 ML VIAL IVP PRN (09:37)
[2021-06-26] MEDS: methylPREDNISolone Sod Succ 40 MG VIAL IVP SCH (09:37)
[2021-06-26] MEDS: Pantoprazole 40 MG VIAL IVP SCH ×2 (09:37→21:29)
[2021-06-26] MEDS: Micafungin 100 MG in Sodium Chloride 0.9% 100 ML IVPB SCH (09:38)
[2021-06-26] MEDS: Senokot S 8.6-50 MG TAB PO SCH ×2 (09:42→21:30)
[2021-06-26] MEDS: Polyethylene Glycol 3350 17 GM Packet PER TUBE SCH (09:42)
[2021-06-26] MEDS: Norepinephrine 8 MG/0.9% NS 250 ML IVPB SCH (09:44)
[2021-06-26] MEDS ORDERED: Rocuronium Bromide 10 MG/ML (10ML VIAL) ONE (10:54)
[2021-06-26] MEDS ORDERED: Phenylephrine 10 MG/ML VIAL ONE (10:54)
[2021-06-26] MEDS ORDERED: Ketamine 50 MG/ML (10ML VIAL) ONE (10:54)
[2021-06-26] MEDS ORDERED: Albumin 25% 25 GM/100 ML BOT IVPB SCH (11:30)
[2021-06-26] MEDS ORDERED: GoLYTELY 4,000 ml Bottle PER TUBE SCH (12:15)
[2021-06-26] MEDS: Acetaminophen 650 MG/20.3 ML UDCUP PO PRN (12:45)
[2021-06-26 18:03] LABS: Hemoglobin 7.8 g/dL (13.5-17.5); Mean Corpuscular HGB CONC 32.1 g/dL (32.0-36.0); Mean Corpuscular Hemoglobin 28.9 pg (27.0-33.0); Platelet Count 52 10x3/uL (150-450); RBC Distribution Width 16.1 % (11.5-14.5); White Blood Cell (WBC) Count 5.5 10x3/uL (3.5-10.5)
[2021-06-26] MEDS: cefTRIAXone\\ROCEPHIN 2 GM in Sodium Chloride 0.9% 100 ML IVPB SCH (21:29)
[2021-06-26] MEDS: Rosuvastatin 20 MG TAB PO SCH (21:30)
[2021-06-27 04:06] LABS: ALT (SGPT) 42 U/L (8-55); AST (SGOT) 170 U/L (5-34); Albumin 2.7 g/dL (3.4-4.8); Alkaline Phosphatase 99 U/L (40-110); Anion Gap 20 mmol/L (10-20); BUN (Urea Nitrogen) 79 mg/dL (8.4-25.7); Bilirubin, Total 0.9 mg/dL (0.2-1.2); Calc. Creatinine Clearance 36 mL/min (70-130); Calcium 6.9 mg/dL (7.8-10.44); Carbon Dioxide 20 mmol/L (23-31); Chloride 104 mmol/L (98-107); Globulin 1.5 g/dL (2.4-3.5); Glucose 86 mg/dL (83-110); Hemoglobin 8.1 g/dL (13.5-17.5); Mean Corpuscular HGB CONC 33.2 g/dL (32.0-36.0); Mean Corpuscular Hemoglobin 29.3 pg (27.0-33.0); Mean Corpuscular Volume 88.4 fl (81.2-95.1); Mean Platelet Volume 13.7 fl (7.4-10.4); Platelet Count 57 10x3/uL (150-450); Potassium 3.2 mmol/L (3.5-5.1); Protein, Total 4.2 g/dL (5.8-8.1); RBC Distribution Width 16.4 % (11.5-14.5); Red Blood Cell (RBC) Count 2.76 10x6/uL (4.32-5.72); Sodium 141 mmol/L (136-145); White Blood Cell (WBC) Count 5.2 10x3/uL (3.5-10.5)
[2021-06-27 04:21] LABS: MDiff Complete? YES
[2021-06-27 04:26] LABS: Band 21 % (5-11); Lymphocytes 5 % (21-51); Monocytes 4 % (0-10); Neutrophil 70 % (42-75); Nucleated RBC 2 % (0)
[2021-06-27 04:27] LABS: Dohle Bodies SLIGHT; Platelet Morphology Comment Appears Decreased; Toxic Granulation MODERATE; Vacuoles SLIGHT
[2021-06-27 04:30] LABS: Anisocytosis MODERATE=16-30 cells (100X) (0-5/hpf); Basophilic Stippling SLIGHT = 1-2 cells (100X) (None Seen); Elliptocytes SLIGHT = 2-5 cells (100X) (0-1/hpf); Hypochromia SLIGHT = 6-15 cells (100X) (0-5/hpf); Macrocytosis SLIGHT = 6-15 cells (100X) (0-5/hpf); Microcytosis SLIGHT = 6-15 cells (100X) (0-5/hpf); Polychromasia SLIGHT = 2-3 cells (100X) (0-2/hpf); Schistocytes SLIGHT = 2-5 cells (100X) (0-1/hpf); Target Cells SLIGHT = 2-5 cells (100X) (0-1/hpf)
[2021-06-27] MEDS ORDERED: Potassium Chloride 10 MEQ in Premix Bag 1 BAG IVPB SCH (06:45)
[2021-06-27] MEDS: Budesonide 0.5 MG/2 ML NEB NEB SCH ×2 (08:14→19:24)
[2021-06-27] MEDS: Polyethylene Glycol 3350 17 GM Packet PER TUBE SCH (08:27)
[2021-06-27] MEDS: Pantoprazole 40 MG VIAL IVP SCH ×2 (08:36→22:40)
[2021-06-27] MEDS: methylPREDNISolone Sod Succ 40 MG VIAL IVP SCH (08:36)
[2021-06-27] MEDS: Senokot S 8.6-50 MG TAB PO SCH (08:53)
[2021-06-27] MEDS: Amiodarone 200 MG TAB PO SCH ×3 (09:12→22:39)
[2021-06-27] MEDS: Zinc Gluconate 50 MG TAB PO SCH (09:12)
[2021-06-27] MEDS: Saccharomyces boulardii 250 MG CAP PO SCH (09:12)
[2021-06-27] MEDS: Cholecalciferol 1,000 UNITS (25 MCG) TAB PO SCH (09:12)
[2021-06-27] MEDS: Ascorbic Acid 500 mg Chewable Tablet PO SCH (09:12)
[2021-06-27] MEDS: Micafungin 100 MG in Sodium Chloride 0.9% 100 ML IVPB SCH (09:40)
[2021-06-27] MEDS ORDERED: Albumin 25% 25 GM/100 ML BOT IVPB SCH (11:45)
[2021-06-27] MEDS ORDERED: PROPOFOL 20 ML ONE (11:48)
[2021-06-27] MEDS ORDERED: EPINEPHrine 1 MG/10 ML Abboject SYRINGE ONE (11:57)
[2021-06-27] MEDS ORDERED: PHENYLEPHRINE-NS 100 MCG/ML 10 ML SYRINGE ONE (11:58)
[2021-06-27] MEDS: fentaNYL 50 mcg/hour Patch TD SCH (12:51)
[2021-06-27] MEDS: Rosuvastatin 20 MG TAB PO SCH (22:39)
[2021-06-27] MEDS: cefTRIAXone\\ROCEPHIN 2 GM in Sodium Chloride 0.9% 100 ML IVPB SCH (22:39)
[2021-06-28 04:36] LABS: Hemoglobin 7.5 g/dL (13.5-17.5); Mean Corpuscular HGB CONC 32.9 g/dL (32.0-36.0); Mean Corpuscular Hemoglobin 29.4 pg (27.0-33.0); Mean Corpuscular Volume 89.4 fl (81.2-95.1); Mean Platelet Volume 13.8 fl (7.4-10.4); Platelet Count 66 10x3/uL (150-450); RBC Distribution Width 16.7 % (11.5-14.5); Red Blood Cell (RBC) Count 2.55 10x6/uL (4.32-5.72); White Blood Cell (WBC) Count 5.2 10x3/uL (3.5-10.5)
[2021-06-28 04:42] LABS: ALT (SGPT) 33 U/L (8-55); AST (SGOT) 109 U/L (5-34); Albumin 2.4 g/dL (3.4-4.8); Alkaline Phosphatase 131 U/L (40-110); Anion Gap 20 mmol/L (10-20); BUN (Urea Nitrogen) 93 mg/dL (8.4-25.7); Bilirubin, Total 0.6 mg/dL (0.2-1.2); Calc. Creatinine Clearance 31 mL/min (70-130); Carbon Dioxide 18 mmol/L (23-31); Chloride 104 mmol/L (98-107); Globulin 1.5 g/dL (2.4-3.5); Glucose 132 mg/dL (83-110); Potassium 3.3 mmol/L (3.5-5.1); Protein, Total 3.9 g/dL (5.8-8.1); Sodium 139 mmol/L (136-145)
[2021-06-28 06:10] LABS: MDiff Complete? YES; Manual Diff?? YES
[2021-06-28 06:13] LABS: Band 21 % (5-11); Lymphocytes 5 % (21-51); Monocytes 3 % (0-10); Neutrophil 71 % (42-75)
[2021-06-28 06:14] LABS: Anisocytosis SLIGHT = 6-15 cells (100X) (0-5/hpf); Hypochromia SLIGHT = 6-15 cells (100X) (0-5/hpf); Large Platelets SLIGHT; Macrocytosis SLIGHT = 6-15 cells (100X) (0-5/hpf); Microcytosis SLIGHT = 6-15 cells (100X) (0-5/hpf); Platelet Morphology Comment Appears Decreased
[2021-06-28] MEDS: Senokot S 8.6-50 MG TAB PO SCH ×3 (08:24→21:30)
[2021-06-28] MEDS: Amiodarone 200 MG TAB PO SCH ×3 (08:24→21:29)
[2021-06-28] MEDS ORDERED: Albumin 25% 25 GM/100 ML BOT IVPB SCH (08:45)
[2021-06-28] MEDS: Budesonide 0.5 MG/2 ML NEB NEB SCH ×2 (08:53→19:09)
[2021-06-28] MEDS: Pantoprazole 40 MG VIAL IVP SCH ×2 (08:55→21:29)
[2021-06-28] MEDS: Ascorbic Acid 500 mg Chewable Tablet PO SCH (08:56)
[2021-06-28] MEDS: methylPREDNISolone Sod Succ 40 MG VIAL IVP SCH (08:56)
[2021-06-28] MEDS: Saccharomyces boulardii 250 MG CAP PO SCH (08:56)
[2021-06-28] MEDS: Micafungin 100 MG in Sodium Chloride 0.9% 100 ML IVPB SCH (08:56)
[2021-06-28] MEDS: Cholecalciferol 1,000 UNITS (25 MCG) TAB PO SCH (08:57)
[2021-06-28] MEDS: Polyethylene Glycol 3350 17 GM Packet PER TUBE SCH (08:57)
[2021-06-28] MEDS: Zinc Gluconate 50 MG TAB PO SCH (08:57)
[2021-06-28] MEDS: Norepinephrine 8 MG/0.9% NS 250 ML IVPB SCH (10:45)
[2021-06-28] MEDS: cefTRIAXone\\ROCEPHIN 2 GM in Sodium Chloride 0.9% 100 ML IVPB SCH (21:29)
[2021-06-28] MEDS: Rosuvastatin 20 MG TAB PO SCH (21:29)
[2021-06-29 03:24] LABS: Hemoglobin 6.4 g/dL (13.5-17.5); Mean Corpuscular HGB CONC 33.5 g/dL (32.0-36.0); Mean Corpuscular Hemoglobin 30.2 pg (27.0-33.0); Mean Corpuscular Volume 90.1 fl (81.2-95.1); Mean Platelet Volume 13.3 fl (7.4-10.4); Platelet Count 67 10x3/uL (150-450); Red Blood Cell (RBC) Count 2.12 10x6/uL (4.32-5.72); White Blood Cell (WBC) Count 3.7 10x3/uL (3.5-10.5)
[2021-06-29 04:18] LABS: Anion Gap 17 mmol/L (10-20); BUN (Urea Nitrogen) 68 mg/dL (8.4-25.7); Calc. Creatinine Clearance 42 mL/min (70-130); Calcium 7.3 mg/dL (7.8-10.44); Carbon Dioxide 21 mmol/L (23-31); Chloride 103 mmol/L (98-107); Glucose 138 mg/dL (83-110); Potassium 3.3 mmol/L (3.5-5.1); Sodium 138 mmol/L (136-145)
[2021-06-29 05:29] LABS: Anisocytosis SLIGHT = 6-15 cells (100X) (0-5/hpf); Band 20 % (5-11); Basophilic Stippling SLIGHT = 1-2 cells (100X) (None Seen); Dohle Bodies SLIGHT; Elliptocytes SLIGHT = 2-5 cells (100X) (0-1/hpf); Hypochromia SLIGHT = 6-15 cells (100X) (0-5/hpf); Lymphocytes 2 % (21-51); MDiff Complete? YES; Macrocytosis SLIGHT = 6-15 cells (100X) (0-5/hpf); Microcytosis SLIGHT = 6-15 cells (100X) (0-5/hpf); Monocytes 5 % (0-10); Neutrophil 71 % (42-75); Platelet Morphology Comment Appears Decreased; Reactive Lymphocytes 2 % (0-10); Toxic Granulation SLIGHT; Vacuoles SLIGHT
[2021-06-29] MEDS: Micafungin 100 MG in Sodium Chloride 0.9% 100 ML IVPB SCH (07:54)
[2021-06-29] MEDS: methylPREDNISolone Sod Succ 40 MG VIAL IVP SCH (07:54)
[2021-06-29] MEDS: Budesonide 0.5 MG/2 ML NEB NEB SCH ×2 (07:55→19:20)
[2021-06-29] MEDS: Cholecalciferol 1,000 UNITS (25 MCG) TAB PO SCH (07:55)
[2021-06-29] MEDS: Ascorbic Acid 500 mg Chewable Tablet PO SCH (07:55)
[2021-06-29] MEDS: Pantoprazole 40 MG VIAL IVP SCH ×2 (07:55→21:07)
[2021-06-29] MEDS: Saccharomyces boulardii 250 MG CAP PO SCH (07:55)
[2021-06-29] MEDS: Polyethylene Glycol 3350 17 GM Packet PER TUBE SCH (07:55)
[2021-06-29] MEDS: Amiodarone 200 MG TAB PO SCH ×3 (07:55→21:07)
[2021-06-29] MEDS: Zinc Gluconate 50 MG TAB PO SCH (07:55)
[2021-06-29] MEDS: Senokot S 8.6-50 MG TAB PO SCH ×2 (07:55→21:08)
[2021-06-29 10:12] LABS: Glucose 129 mg/dL (83-110)
[2021-06-29] MEDS: Acetaminophen 650 MG/20.3 ML UDCUP PO PRN (12:27)
[2021-06-29 13:54] LABS: Hemoglobin 8.6 g/dL (13.5-17.5)
[2021-06-29] MEDS: cefTRIAXone\\ROCEPHIN 2 GM in Sodium Chloride 0.9% 100 ML IVPB SCH (21:07)
[2021-06-29] MEDS: Rosuvastatin 20 MG TAB PO SCH (21:07)
[2021-06-29 22:39] LABS: Hemoglobin 8.6 g/dL (13.5-17.5); Platelet Count 69 10x3/uL (150-450)
[2021-06-30 03:37] LABS: Hemoglobin 8.8 g/dL (13.5-17.5); Mean Corpuscular HGB CONC 33.5 g/dL (32.0-36.0); Mean Corpuscular Hemoglobin 29.9 pg (27.0-33.0); Mean Corpuscular Volume 89.5 fl (81.2-95.1); Platelet Count 67 10x3/uL (150-450); RBC Distribution Width 16.6 % (11.5-14.5); Red Blood Cell (RBC) Count 2.94 10x6/uL (4.32-5.72); White Blood Cell (WBC) Count 3.6 10x3/uL (3.5-10.5)
[2021-06-30 03:46] LABS: Anion Gap 18 mmol/L (10-20); BUN (Urea Nitrogen) 83 mg/dL (8.4-25.7); Calc. Creatinine Clearance 37 mL/min (70-130); Calcium 7.3 mg/dL (7.8-10.44); Carbon Dioxide 21 mmol/L (23-31); Chloride 103 mmol/L (98-107); Glucose 95 mg/dL (83-110); Potassium 3.3 mmol/L (3.5-5.1); Sodium 139 mmol/L (136-145)
[2021-06-30] MEDS: Budesonide 0.5 MG/2 ML NEB NEB SCH ×2 (07:39→19:00)
[2021-06-30 08:01] LABS: Band 2 % (5-11); Lymphocytes 8 % (21-51); MDiff Complete? YES; Monocytes 8 % (0-10); Neutrophil 82 % (42-75)
[2021-06-30 08:03] LABS: Platelet Morphology Comment Appears Decreased; RBC Morphology Normal
[2021-06-30] MEDS: Amiodarone 200 MG TAB PO SCH ×3 (08:05→22:01)
[2021-06-30] MEDS: Saccharomyces boulardii 250 MG CAP PO SCH (08:06)
[2021-06-30] MEDS: Senokot S 8.6-50 MG TAB PO SCH ×2 (08:06→22:00)
[2021-06-30] MEDS: Cholecalciferol 1,000 UNITS (25 MCG) TAB PO SCH (08:06)
[2021-06-30] MEDS: Zinc Gluconate 50 MG TAB PO SCH (08:06)
[2021-06-30] MEDS: Polyethylene Glycol 3350 17 GM Packet PER TUBE SCH (08:06)
[2021-06-30] MEDS: Ascorbic Acid 500 mg Chewable Tablet PO SCH (08:06)
[2021-06-30] MEDS: methylPREDNISolone Sod Succ 40 MG VIAL IVP SCH (08:13)
[2021-06-30] MEDS: Pantoprazole 40 MG VIAL IVP SCH ×2 (08:13→22:01)
[2021-06-30] MEDS ORDERED: Bupivacaine 0.25% HCL 30 ML VIAL ONE (08:30)
[2021-06-30] MEDS ORDERED: EPINEPHrine 1 MG/ML AMP ONE (08:31)
[2021-06-30] MEDS ORDERED: PROPOFOL 20 ML ONE (08:48)
[2021-06-30] MEDS ORDERED: Fentanyl 100 MCG/2 ML VIAL ONE (08:49)
[2021-06-30] MEDS ORDERED: PHENYLEPHRINE-NS 100 MCG/ML 10 ML SYRINGE ONE (10:05)
[2021-06-30] MEDS: fentaNYL 50 mcg/hour Patch TD SCH (10:55)
[2021-06-30] MEDS: Acetaminophen 650 MG/20.3 ML UDCUP PO PRN (12:12)
[2021-06-30] MEDS: Fentanyl 100 MCG/2 ML VIAL SLOW IVP PRN (12:27)
[2021-06-30] MEDS: Rosuvastatin 20 MG TAB PO SCH (22:00)
[2021-07-01] MEDS: Fentanyl 100 MCG/2 ML VIAL SLOW IVP PRN (02:51)
[2021-07-01 02:54] LABS: Hemoglobin 9.7 g/dL (13.5-17.5); Mean Corpuscular Hemoglobin 29.5 pg (27.0-33.0); Mean Corpuscular Volume 89.4 fl (81.2-95.1); Platelet Count 77 10x3/uL (150-450); RBC Distribution Width 17.1 % (11.5-14.5); Red Blood Cell (RBC) Count 3.29 10x6/uL (4.32-5.72); White Blood Cell (WBC) Count 3.7 10x3/uL (3.5-10.5)
[2021-07-01 02:58] LABS: Anion Gap 17 mmol/L (10-20); BUN (Urea Nitrogen) 49 mg/dL (8.4-25.7); Calc. Creatinine Clearance 51 mL/min (70-130); Calcium 7.7 mg/dL (7.8-10.44); Carbon Dioxide 26 mmol/L (23-31); Chloride 101 mmol/L (98-107); Glucose 102 mg/dL (83-110); Potassium 3.6 mmol/L (3.5-5.1); Sodium 140 mmol/L (136-145)
[2021-07-01 04:03] LABS: Band 11 % (5-11); Lymphocytes 10 % (21-51); Monocytes 11 % (0-10); Reactive Lymphocytes 2 % (0-10)
[2021-07-01 04:04] LABS: Neutrophil 66 % (42-75)
[2021-07-01 04:05] LABS: Platelet Morphology Comment Appears Decreased
[2021-07-01] MEDS: Budesonide 0.5 MG/2 ML NEB NEB SCH (07:25)
[2021-07-01] MEDS: Polyethylene Glycol 3350 17 GM Packet PER TUBE SCH (08:01)
[2021-07-01] MEDS: Senokot S 8.6-50 MG TAB PO SCH (08:02)
[2021-07-01] MEDS: Amiodarone 200 MG TAB PO SCH ×2 (08:36→15:52)
[2021-07-01] MEDS: Zinc Gluconate 50 MG TAB PO SCH (08:36)
[2021-07-01] MEDS: Saccharomyces boulardii 250 MG CAP PO SCH (08:36)
[2021-07-01] MEDS: Pantoprazole 40 MG VIAL IVP SCH (08:36)
[2021-07-01] MEDS: Cholecalciferol 1,000 UNITS (25 MCG) TAB PO SCH (08:36)
[2021-07-01] MEDS: Ascorbic Acid 500 mg Chewable Tablet PO SCH (08:36)
[2021-07-01 10:48] VITALS: BMI 27.8
[2021-07-01 15:49] VITALS: BP 108/60; TEMP 98
== END 2021-07-01 19:04 | disposition home or self-care (01) | DRG 4 ==
LOC: CSHERS 21:02 → CSHICU 05-24 09:26
PROVIDERS: ADMIT Family Medicine; ATTEND Family Medicine
PROC: XW0DXM6 Introduction of Baricitinib into Mouth and Pharynx, External Approach, New Technology Group 6 (ICD-10-PCS; 2021-05-24)
PROC: 8E0ZXY6 Isolation (ICD-10-PCS; 2021-05-24)
PROC: 5A1955Z Respiratory Ventilation, Greater than 96 Consecutive Hours (ICD-10-PCS; 2021-06-03)
PROC: 05HM33Z Insertion of Infusion Device into Right Internal Jugular Vein, Percutaneous Approach (ICD-10-PCS; 2021-06-03)
PROC: B543ZZA Ultrasonography of Right Jugular Veins, Guidance (ICD-10-PCS; 2021-06-03)
PROC: 0BH18EZ Insertion of Endotracheal Airway into Trachea, Via Natural or Artificial Opening Endoscopic (ICD-10-PCS; 2021-06-03)
PROC: 3E043XZ Introduction of Vasopressor into Central Vein, Percutaneous Approach (ICD-10-PCS; 2021-06-03)
PROC: 0W9B30Z Drainage of Left Pleural Cavity with Drainage Device, Percutaneous Approach (ICD-10-PCS; 2021-06-04)
PROC: 0W9930Z Drainage of Right Pleural Cavity with Drainage Device, Percutaneous Approach (ICD-10-PCS; 2021-06-04)
PROC: 30233N1 Transfusion of Nonautologous Red Blood Cells into Peripheral Vein, Percutaneous Approach (ICD-10-PCS; 2021-06-05)
PROC: 0B113F4 Bypass Trachea to Cutaneous with Tracheostomy Device, Percutaneous Approach (ICD-10-PCS; principal; 2021-06-08)
PROC: 0DH63UZ Insertion of Feeding Device into Stomach, Percutaneous Approach (ICD-10-PCS; 2021-06-08)
PROC: 3E0G76Z Introduction of Nutritional Substance into Upper GI, Via Natural or Artificial Opening (ICD-10-PCS; 2021-06-08)
PROC: 0W9B00Z Drainage of Left Pleural Cavity with Drainage Device, Open Approach (ICD-10-PCS; 2021-06-08)
PROC: 0W9900Z Drainage of Right Pleural Cavity with Drainage Device, Open Approach (ICD-10-PCS; 2021-06-08)
PROC: 30233R1 Transfusion of Nonautologous Platelets into Peripheral Vein, Percutaneous Approach (ICD-10-PCS; 2021-06-22)
PROC: 06HY33Z Insertion of Infusion Device into Lower Vein, Percutaneous Approach (ICD-10-PCS; 2021-06-22)
PROC: 5A1D70Z Performance of Urinary Filtration, Intermittent, Less than 6 Hours Per Day (ICD-10-PCS; 2021-06-22)
PROC: 0DJ08ZZ Inspection of Upper Intestinal Tract, Via Natural or Artificial Opening Endoscopic (ICD-10-PCS; 2021-06-26)
PROC: 0DBN8ZX Excision of Sigmoid Colon, Via Natural or Artificial Opening Endoscopic, Diagnostic (ICD-10-PCS; 2021-06-27)
PROC: 0JH63XZ Insertion of Tunneled Vascular Access Device into Chest Subcutaneous Tissue and Fascia, Percutaneous Approach (ICD-10-PCS; 2021-06-30)
PROC: 05HN33Z Insertion of Infusion Device into Left Internal Jugular Vein, Percutaneous Approach (ICD-10-PCS; 2021-06-30)
PROC: B5141ZA Fluoroscopy of Left Jugular Veins using Low Osmolar Contrast, Guidance (ICD-10-PCS; 2021-06-30)
PROC: B544ZZA Ultrasonography of Left Jugular Veins, Guidance (ICD-10-PCS; 2021-06-30)
DX: A41.89 Other specified sepsis (principal); U07.1 COVID-19; J12.82 Pneumonia due to coronavirus disease 2019; J96.01 Acute respiratory failure with hypoxia; Z66 Do not resuscitate; I21.A1 Myocardial infarction type 2; G93.41 Metabolic encephalopathy; R65.21 Severe sepsis with septic shock; J15.0 Pneumonia due to Klebsiella pneumoniae; N17.0 Acute kidney failure with tubular necrosis; N18.6 End stage renal disease; E87.2 Acidosis; A08.39 Other viral enteritis; J93.9 Pneumothorax, unspecified; D62 Acute posthemorrhagic anemia; K92.2 Gastrointestinal hemorrhage, unspecified; E46 Unspecified protein-calorie malnutrition; I48.92 Unspecified atrial flutter; I50.32 Chronic diastolic (congestive) heart failure; E87.0 Hyperosmolality and hypernatremia; D61.818 Other pancytopenia; D61.9 Aplastic anemia, unspecified; G62.81 Critical illness polyneuropathy; I13.2 Hypertensive heart and chronic kidney disease with heart failure and with stage 5 chronic kidney disease, or end stage renal disease; K55.9 Vascular disorder of intestine, unspecified; I48.0 Paroxysmal atrial fibrillation; R74.01 Elevation of levels of liver transaminase levels; D53.9 Nutritional anemia, unspecified; K29.80 Duodenitis without bleeding; K64.9 Unspecified hemorrhoids; E78.2 Mixed hyperlipidemia; E86.0 Dehydration; E87.8 Other disorders of electrolyte and fluid balance, not elsewhere classified; E83.51 Hypocalcemia; E87.5 Hyperkalemia; J98.2 Interstitial emphysema; Z68.27 Body mass index [BMI] 27.0-27.9, adult; Z87.891 Personal history of nicotine dependence
CPT/HCPCS: 0240U; 36415; 36416; 36430; 36600; 71045; 71250; 71275; 74174; 74177; 76705; 80048; 80053; 80076; 80202; 81001; 81003; 81015; 82274; 82553; 82570; 82805; 83605; 83615; 83630; 83690; 83735; 83880; 84100; 84300; 84484; 85007; 85025; 85027; 85049; 85060; 85300; 85362; 85379; 85384; 85610; 85730; 86140; 86704; 86706; 86803; 86850; 86900; 86901; 87040; 87045; 87046; 87070; 87077; 87081; 87086; 87186; 87205; 87324; 87340; 87427; 87449; 87899; 88305; 89220; 90935; 93005; 93010; 93306; 93970; 94002; 94003; 94640; 94760; 94762; 96372; 96374; 96375; B4087; C1752; C9113; G0257; J0171; J0282; J0610; J0696; J1100; J1160; J1642; J1650; J1815; J1940; J1956; J2060; J2185; J2248; J2250; J2270; J2370; J2405; J2543; J2597; J2704; J2920; J3010; J3370; J3480; J3490; J7030; J7050; J7070; J7120; J7620; J7626; P9016; P9035; P9045; P9047; S0020